=== PATIENT | female | born 1960 | race Caucasian/White ===

== ENCOUNTER 2019-09-27 09:58 | Outpatient (CLI) | payer OTHER, SELFPAY ==
[2019-09-27 10:19] LABS: Add Urine Microscopic? NO; Appearance Urine Clear (Clear); Bilirubin Urine Negative (Negative); Blood Urine Negative (Negative); Color Urine Yellow (Yellow); Glucose Urine UA Negative (Negative); Ketones Urine Negative (Negative); Leukocyte Esterase Ur Negative (Negative); Nitrate Urine Negative (Negative); Protein Urine Negative (Negative); Specific Grav Ur 1.015 (1.010-1.020); Urobilinogen Urine 0.2 mg/dL (0.2-1.0)
[2019-09-27 10:56] LABS: Alanine Aminotransferase 34 U/L (14-59); Albumin Level 4.1 g/dL (3.4-5.0); Alkaline Phosphatase 79 U/L (46-116); Anion Gap 9.3 mmol/L (7-16); Aspartate Amino Transferase 22 U/L (15-37); Bilirubin,Total 0.5 mg/dL (0.00-1.00); Blood Urea Nitrogen 9 mg/dL (7-18); Calcium 9.8 mg/dL (8.5-10.1); Carbon Dioxide 32 mmol/L (21-32); Chloride 105 mmol/L (98-108); Cholesterol 198 mg/dL (0-200); Creatine Kinase 43 U/L (26-192); Estimated Glomerular Filt Rate > 60; Free T3 2.44 pg/mL (2.18-3.98); Free T4 Free Thyroxine 1.01 ng/dL (0.76-1.46); Glucose 98 mg/dL (70-99); HDL Direct 54 mg/dL (40-60); LDL Cholesterol Calculated 114 mg/dL (<130); Osmolality Calculated 292 mOsm/kg (285-295); Potassium 4.3 mmol/L (3.5-5.1); Sodium 142 mmol/L (136-145); Thyroid Stimulating Hormone 2.09 uIU/mL (0.36-3.74); Total Protein 7.2 g/dL (6.4-8.2); Triglycerides 148 mg/dL (0-150)
[2019-10-01 19:56] LABS: Vitamin D 25 Hydroxy 53 ng/mL (30-100)
== END 2019-09-27 09:59 | disposition home or self-care (01) ==
LOC: CHSLAB 09:59
PROVIDERS: PCP Internal Medicine; Visit Provider Internal Medicine
DX: E78.2 Mixed hyperlipidemia (principal); I10 Essential (primary) hypertension; E03.4 Atrophy of thyroid (acquired); M81.0 Age-related osteoporosis without current pathological fracture
CPT/HCPCS: 36415; 80053; 80061; 81003; 82306; 82550; 84439; 84443; 84481

== ENCOUNTER 2019-11-12 08:03 | Outpatient (CLI) | payer OTHER, SELFPAY ==
--- NOTE | ~2019-11-12 | DEXA_ITS ---
BMD(1) Young-Adult(2) Age-Matched(3) Region (g/cm2) T-score Z-score WHO Classification L1 1.251 0.9 1.4 Normal L2 1.310 0.8 1.3 Normal L3 1.374 1.3 1.8 Normal L4 1.404 1.4 2.0 Normal L1-L4 1.341 1.2 1.7 Normal Trend: L1-L4 Change vs Change vs Measured Age BMD(1) Baseline Previous Date (years) (g/cm2) (%) (%) 11/12/2019 59.1 1.341 -3.5* -4.1* 10/26/2017 57.1 1.398 0.6 -1.6 10/23/2014 54.1 1.421 2.3* -1.4 10/05/2013 53.0 1.441 3.7* 0.7 09/17/2011 51.0 1.431 3.0* 1.1 05/05/2009 46.6 1.416 1.9 1.9 04/07/2007 44.5 1.389 baseline - * - Indicates significant change based on 95% confidence interval. 1 - Statistically 68% of repeat scans fall within 1SD (+- 0.010 g/cm2 for AP Spine L1-L4) 2 - [place] (Combined NHANES (ages 20-30) / [employer] (ages 20-40)) AP Spine Reference Population (v112) 3 - Matched for Age, Weight (females 25-100 kg), Ethnic 11 - World Health Organization - Definition of Osteoporosis and Osteopenia for Women: Normal = T-score at or above -1.0 SD; Osteopenia = T-score between -1.0 and -2.5 SD; Osteoporosis = T-score at or below -2.5 SD; (WHO definitions only apply when a young healthy Women reference database is used to determine T-scores.) Printed: 11/12/2019 8:41:09 AM (13.60)76:3.00:50.00:12.0 0.00:10.92 0.60x1.05 23.7:%Fat=41.3% 0.00:0.00 0.00:0.00 Filename: [id number] Scan Mode: Standard;OneScan 37.0 uGy [employer] [id number] BMD(1) Young-Adult(2,7) Age-Matched(3) Region (g/cm2) T-score Z-score WHO Classification Neck Left 0.676 -2.6 -1.8 Osteoporosis Right 0.695 -2.5 -1.7 Osteoporosis Mean 0.685 -2.5 -1.7 Osteoporosis Difference 0.019 0.1 0.1 - Total Left 0.777 -1.8 -1.4 Osteopenia Right 0.753 -2.0 -1.6 Osteopenia Mean 0.765 -1.9 -1.5 Osteopenia Difference 0.024 -0.2 -0.2 - Hip [place] Length Comparison (mm) (Right = 110.5 mm) (Mean = 105.7 mm) (Left = 111.3 mm) Trend: Total Mean Change vs Change vs Measured Age BMD(1) Baseline Previous Date (years) (g/cm2) (%) (%) 11/12/2019 59.1 0.765 2.4 2.4 10/05/2013 53.0 0.747 0.0 0.8 09/17/2011 51.0 0.741 -0.8 -1.6 05/05/2009 46.6 0.753 0.8 0.8 04/07/2007 44.5 0.747 baseline - 1 - Statistically 68% of repeat scans fall within 1SD (+- 0.010 g/cm2 for DualFemur Total) 2 - [place] (Combined NHANES (ages 20-30) / [employer] (ages 20-40)) Femur Reference Population (v112) 3 - Matched for Age, Weight (females 25-100 kg), Ethnic 7 - [employer]em[employer] Total T-score difference is 0.2. Asymmetry is None. 11 - World Health Organization - Definition of Osteoporosis and Osteopenia for Women: Normal = T-score at or above -1.0 SD; Osteopenia = T-score between -1.0 and -2.5 SD; Osteoporosis = T-score at or below -2.5 SD; (WHO definitions only apply when a young healthy Women reference database is used to determine T-scores.) Printed: 11/12/2019 8:41:10 AM (13.60); Filename: [id number]; Right Femur; 19.9:%Fat=31.0%; Neck Angle (deg)= 64; Scan Mode: Standard 37.0 uGy; Left Femur; 19.6:%Fat=33.0%; Neck Angle (deg)= 63; Scan Mode: Standard 37.0 uGy [employer] [id number] Dear Joseph Floyd, Your patient Jayne Williamson completed
--- NOTE | ~2019-11-12 | MM_ITS ---
EXAMINATION: MM screening mee BI w devaughn HISTORY: Screening TECHNIQUE: Craniocaudal and mediolateral oblique 3-D tomosynthesis images were obtained and synthetic 2-D images were generated. CAD analysis was submitted and interpreted. COMPARISON: Comparison to multiple prior studies sequentially, with oldest reviewed study dated 10/05. BREAST PARENCHYMAL COMPOSITION: The breasts are heterogeneously dense, which may obscure small masses . FINDINGS: Bilateral breast asymmetries are stable. There is no evidence of suspicious mass, calcifica tion, or architectural distortion to suggest malignancy in either breast. There has been no suspiciou s interval change. IMPRESSION: 1. No mammographic evidence of malignancy. 2. Recommend routine screening mammography in one year. BI-RADS Category 1: Negative Reviewed, dictated and finalized at location A.
== END 2019-11-12 08:04 | disposition home or self-care (01) ==
LOC: CHSIMG 08:04
PROVIDERS: PCP Internal Medicine; Visit Provider Internal Medicine
DX: Z12.31 Encounter for screening mammogram for malignant neoplasm of breast (principal); M81.0 Age-related osteoporosis without current pathological fracture
CPT/HCPCS: 77063; 77067; 77080

== ENCOUNTER 2020-04-25 08:29 | Outpatient (CLI) | payer OTHER, SELFPAY ==
[2020-04-25 08:52] LABS: Add Urine Microscopic? NO; Appearance Urine Clear (Clear); Bilirubin Urine Negative (Negative); Blood Urine Negative (Negative); Color Urine Yellow (Yellow); Glucose Urine UA Negative (Negative); Ketones Urine Negative (Negative); Leukocyte Esterase Ur Negative (Negative); Nitrate Urine Negative (Negative); Protein Urine Negative (Negative); Urobilinogen Urine 0.2 mg/dL (0.2-1.0)
[2020-04-25 09:31] LABS: Alanine Aminotransferase 25 U/L (14-59); Albumin Level 4.2 g/dL (3.4-5.0); Alkaline Phosphatase 76 U/L (46-116); Anion Gap 7 mmol/L (8-16); Aspartate Amino Transferase 14 U/L (15-37); Bilirubin,Total 0.6 mg/dL (0.00-1.00); Blood Urea Nitrogen 12 mg/dL (7-18); Calcium 9.2 mg/dL (8.5-10.1); Carbon Dioxide 32 mmol/L (21-32); Chloride 104 mmol/L (98-108); Cholesterol 171 mg/dL (0-200); Creatine Kinase 39 U/L (26-192); Estimated Glomerular Filt Rate > 60; Free T3 2.25 pg/mL (2.18-3.98); Free T4 Free Thyroxine 0.81 ng/dL (0.76-1.46); Glucose 101 mg/dL (70-99); HDL Direct 44 mg/dL (40-60); LDL Cholesterol Calculated 99 mg/dL (<130); Osmolality Calculated 295 mOsm/kg (285-295); Potassium 4.3 mmol/L (3.5-5.1); Sodium 143 mmol/L (136-145); Thyroid Stimulating Hormone 2.17 uIU/mL (0.36-3.74); Total Protein 6.9 g/dL (6.4-8.2); Triglycerides 140 mg/dL (0-150)
[2020-04-30 21:08] LABS: Vitamin D 25 Hydroxy 46 ng/mL (30-100)
== END 2020-04-25 08:30 | disposition home or self-care (01) ==
LOC: CHSLAB 08:31
PROVIDERS: PCP Internal Medicine; Visit Provider Internal Medicine
DX: E78.2 Mixed hyperlipidemia (principal); I10 Essential (primary) hypertension; E03.4 Atrophy of thyroid (acquired); M81.0 Age-related osteoporosis without current pathological fracture
CPT/HCPCS: 36415; 80053; 80061; 81003; 82306; 82550; 84439; 84443; 84481

== ENCOUNTER 2020-05-08 09:16 | Outpatient (CLI) | payer OTHER, SELFPAY ==
--- NOTE | ~2020-05-08 | XR_ITS ---
EXAMINATION: XR knee RT 3V EXAM DATE: 05/08/2020 09:41 INDICATION: No known recent injury provided at this time. Pain of the right knee. TECHNIQUE: Three projections of the right knee. There is no prior study for comparison. FINDINGS: No evidence osteochondral defect or joint body in the right knee joint. There are no acut e fractures or dislocations identified. There is no subcutaneous gas. The soft tissue is unremarkab le. There are no radiopaque foreign bodies. No joint effusion. Joint spaces are maintained. IMPRESSION: 1. Unremarkable XR knee RT 3V exam. Reviewed, dictated and finalized at location B. DEALER
== END 2020-05-08 09:17 | disposition home or self-care (01) ==
LOC: CHSIMG 09:18
PROVIDERS: PCP Internal Medicine; Visit Provider Internal Medicine
DX: M25.561 Pain in right knee (principal)
CPT/HCPCS: 73562

== ENCOUNTER → 2020-05-15 09:21 | Outpatient (CLI) | payer OTHER, SELFPAY ==
--- NOTE | ~2020-05-15 | MR_ITS ---
EXAMINATION: MR knee RT wo con DATE: 05/15/2020 10:03 INDICATION: Several months of generalized right knee pain, swelling and numbness with limited range o f motion. TECHNIQUE: Magnetic resonance imaging (MRI) of the right knee was performed without intravenous contr ast. Sequences included coronal PD-weighted FSE, coronal PD-weighted FS FSE, sagittal T2-weighted FS E, sagittal PD-weighted FS FSE and axial PD weighted fat saturated FSE. COMPARISON: Right knee radiographs dated 05/08/2020 FINDINGS: Medial compartment: Medial meniscus is normal. There is mild partial-thickness cartilage loss with chondral surface irreg ularity along the anterior weightbearing medial femoral condyle. Lateral compartment: Small focus of increased signal along the inner free edge of the lateral meniscus which could represe nt a small radial tear or focal fraying. Articular cartilage is normal. Patellofemoral compartment: Partial-thickness chondral fissuring extending across the central third of the patella and involving up to 50% the cartilage thickness. Trochlear cartilage is normal. Ligaments and tendons: Anterior and posterior cruciate ligaments are normal. The medial collateral ligament and fibular ralph ateral ligament complex are normal. The extensor mechanism is normal. The visualized medial and later al hamstring tendons as well as the iliotibial band are normal. Fluid: Physiologic amount of fluid in the joint space. No loose osteochondral bodies identified. Osseous/other: Normal marrow signal. Tiny low signal intensity bone island at the lateral tibial plateau. No fractur e or pathologic marrow replacing process. Mild edema in the superficial suprapatellar fat pad along t he superomedial aspect of the patella which can be seen with fat pad impingement syndrome. IMPRESSION: 1. Small radial tear versus fraying along the free edge of the body of the lateral meniscus. 2. Mild medial and patellofemoral compartment osteoarthritis with regions of moderate grade chondral malacia along the anterior weightbearing medial femoral condyle and along the patella. 3. Mild edema the superficial suprapatellar fat pad which can be seen with fat pad impingement syndro me. Reviewed, dictated and finalized at location B. RBARIC TECHNOLOGIST IMPRESSION: 1. Small radial tear versus fraying along the free edge of the body of the late ral meniscus. 2. Mild medial and patellofemoral compartment osteoarthritis with regions of mo derate grade chondral malacia along the anterior weightbearing medial femoral c ondyle and along the patella. 3. Mild edema the superficial suprapatellar fat pad which can be seen with fat pad impingement syndrome.
== END ==
PROVIDERS: PCP Internal Medicine; Visit Provider Internal Medicine
DX: M17.11 Unilateral primary osteoarthritis, right knee (principal); R60.0 Localized edema
CPT/HCPCS: 73721

== ENCOUNTER 2020-05-21 08:56 | Outpatient (RCR) | payer OTHER, SELFPAY ==
--- NOTE | 2020-05-21 09:41 | PTOPEVAL ---
Thank you for referring Jayne Williamson to [facility].? The patient is scheduled to be seen for therapy? __2__x/week for 8 visits. Please review, sign, date and return this plan of care MILES. I agree with and certify that the following plan of care is medically necessary. Referring Physician Date Admitting Provider: Attending Provider: Joseph Floyd MD Referring Provider: *PT Outpatient Evaluation Start: 05/21/20 09:10 Freq: Status: Active Protocol: Document 05/21/20 09:11 YANGRENOOsvaldo (Rec: 05/21/20 09:41 JESSE [email or web address]) Therapy Assessment Status Assessment Status Assessment Status Evaluation Evaluation Information Problem Diagnosis right knee pain Cause 01/13/20 Subjective Information Pt. states that she has had Query Text:As Reported By Patient/ knee pain since January. She Family reports that around that time she was helping with her granddaughter and doing alot of walking. She states that pain gradually got worse. She states that she has sharp pain down the center of the knee and has a numb feeling on the outside of the right knee . She reports pain is constant . She states that pain can wake her at night. She states that stairs, squatting and kneeling are difficult. She has to complete stairs one step at a time. She states that she was walking 2-3 miles a day, but can only go a 1/4 of a mile before having to stop now. she reports that her goal is to decrease her pain and walk a longer distance. Pain Assessment Pain Scale Pain Scale Used Numeric (1 - 10) Self Report Pain Assessment Right Knee(s) Reported Pain Level 4 Pain Description Numbness,Sharp Pain Frequency Continuous Greatest Pain Intensity 10 Pain Aggravating Factors Exercise/Activity,Prolonged Position,Stair Climbing Pain Score Pain Score 4: Self Report Additional Pain Score Comments Pt. has been using prednisone for several days with some relief noted Interventions Used Interventio
--- NOTE | 2020-08-07 13:31 | PCPTNOTE ---
Mrs. Williamson attended a total of 6 treatment sessions from 05/21/20 to 06/04/20. She contacted the clinic recently stating that she underwent surgery. Pt. account will be discharged at this time in anticipation of pt. returning post operatively. Felipe Ngo, MPT
== END 2020-06-04 09:45 | disposition home or self-care (01) ==
LOC: CHSPT 08:56
PROVIDERS: PCP Internal Medicine; Visit Provider Internal Medicine
DX: M25.561 Pain in right knee (principal)
CPT/HCPCS: 97014; 97110; 97140; 97161; G0283

== ENCOUNTER → 2020-07-22 01:20 | Outpatient (CLI) | payer OTHER, SELFPAY ==
[2020-07-22 18:55] LABS: SARS-CoV-2 RNA PCR Negative
== END ==
PROVIDERS: PCP Internal Medicine; Visit Provider Orthopaedic Surgery
DX: Z01.812 Encounter for preprocedural laboratory examination (principal); Z20.822 Contact with and (suspected) exposure to COVID-19
CPT/HCPCS: C9803; U0003; U0005

== ENCOUNTER 2020-07-22 08:59 | Outpatient (CLI) | payer OTHER, SELFPAY ==
--- NOTE | 2020-07-22 09:09 | ECG_ITS ---
Measurements Intervals [facility] Rate: 80 P: 71 TN: 143 QRS: 74 QRSD: 93 T: 39 QT: 374 QTc: 432 Interpretive Statements SINUS RHYTHM NORMAL ECG Electronically Signed On 07-22-2020 9:27:38 CDT by Jose Knapp D.O.
== END 2020-07-22 09:00 | disposition home or self-care (01) ==
LOC: ANHSURGERY 09:03
PROVIDERS: PCP Internal Medicine; Visit Provider Orthopaedic Surgery
DX: Z01.810 Encounter for preprocedural cardiovascular examination (principal); I10 Essential (primary) hypertension; E78.5 Hyperlipidemia, unspecified
CPT/HCPCS: 93005

== ENCOUNTER 2020-07-25 06:00 | Day surgery (SDC) | payer OTHER, SELFPAY ==
[2020-07-16 10:52] VITALS: BMI 28.0
--- NOTE | 2020-07-24 12:51 | WPDANESEPPF ---
Anes - Initial Pre Proc Eval Procedure: Operation Date: 07/25/20 07:30 Proposed Procedures p Right Knee Arthroscopy, Proceed As Indicated - Prem Gómez MD Date/Time: 07/24/20 12:51 Surgeon: Prem Gómez MD Pre Op Diagnosis: right knee lateral meniscus tear chondromalacia Patient Data Age: 59 Gender: F Height: 1.63 m Weight: 74 kg Allergies Allergy/AdvReac Type Severity Reaction Status Date / Time No Known Allergies Allergy Unverified 07/25/20 06:35 Home Medications Medication Instructions Recorded Confirmed Type chlorhexidine gluconate 4 % 1 applic TOPICAL ONCE #237 ml 07/09/20 07/25/20 Rx topical liquid cholecalciferol (vitamin D3) 25 mcg PO DAILY 07/16/20 07/25/20 History [Vitamin D3] escitalopram oxalate 10 mg PO DAILY 07/16/20 07/25/20 History famotidine [Pepcid] 20 mg PO DAILY 07/16/20 07/25/20 History ibandronate 150 mg PO MONTHLY 07/16/20 07/25/20 History levothyroxine 50 mcg PO DAILY 07/16/20 07/25/20 History losartan 25 mg PO DAILY 07/16/20 07/25/20 History melatonin 3 mg PO HS 07/16/20 07/25/20 History multivitamin 1 tablet PO DAILY 07/16/20 07/25/20 History nortriptyline 10 mg PO HS 07/16/20 07/25/20 History polyethylene glycol 3350 [Miralax] 17 g PO BID 07/16/20 07/25/20 History rosuvastatin 5 mg PO HS 07/16/20 07/25/20 History Patient hx anesthesia problems: none Family hx anesthesia problems: none PMFSH Past Medical History Medical History (Updated 07/24/20 @ 12:51 by Joaquim Ramos DO) Anxiety Claustrophobia Depression Hyperlipidemia Hypertension Hypothyroidism IBS (irritable bowel syndrome) Osteoporosis Wears glasses Surgical History Surgical History (Updated 07/08/20 @ 09:54 by Catia Ochoa MA) H/O: hysterectomy 1988 Family History Family History (Updated 07/09/20 @ 08:30 by Genna Malone, RT(R)) Father Hypertension Cerebrovascular accident Family history of type 2 diabetes mellitus Mother Hypertension Family history of type 2 diabetes mellitus Sibling Hypertension Family history of type 2 diabetes mellitus Other Arthritis Family history of malignant neoplasm of breast Heart disease High cholesterol Melanoma Thyroid cancer Social History Social History (Updated 07/08/20 @ 09:52 by Catia Ochoa MA) Smoking status: Never smoker Alcohol intake: never Substance use: never Substance use type: does not use Living arrangements: with family Gender identity (if verbalized by the patient): Female Spiritual care concerns: No Anes - Eval Final PreProcedure Day of Procedure 07/24/20 12:51 Patient weight: overweight Heart: regular rate and rhythm Lungs: clear to auscultation and normal air movement Airway: Mallampati scale class II Neurological: alert and oriented Last oral intake: >/= 8 hours ASA classification: III Emergent: no Anesthetic plan: proceed Anesthesia type and monitoring: general LMA and standard monitoring Informed Consent: The patient's anesthetic plan and its attendant risks and benefits were discussed with the patient/family/POA. Questions were solicited and answers provided to the satisfaction of the patient/family/POA.
[2020-07-25] VITALS (9 sets, daily range): BP systolic 110–158; BP diastolic 57–96; PULSE 61–78; RESP 12–16; TEMP 36.4–36.9; O2SAT 99–100
[2020-07-25] MEDS: LACTATED RINGERS 1,000 ML 30 ML IV CONT ×2 (06:55→08:54)
[2020-07-25] MEDS: ACETAMINOPHEN 500 MG TABLET 1000 MG PO (07:03)
[2020-07-25] MEDS: CELECOXIB 200 MG CAPSULE PO (07:03)
--- NOTE | 2020-07-25 07:22 | WPDHPUPDATE1 ---
History and Physical Update Update Date/Time: 07/25/20 07:22 History and Physical has been reviewed, including an updated exam of the patient. There are NO changes in the patient's condition. Risks, benefits, and alternatives have been discussed and questions answered. Patient agrees to proceed with procedure.
[2020-07-25] MEDS: ceFAZolin 2 GM/D5W 50 ML 2 GM/50 ML BAG IVPB (07:30)
[2020-07-25] MEDS: BUPIVACAINE HCL 0.5% PF 30 ML VIAL INFILTRATE (07:55)
--- NOTE | 2020-07-25 09:00 | PM.PROC ---
Procedure Note - Detailed Date of procedure: 07/25/20 Pre-op diagnosis: right knee lateral meniscus tear chondromalacia Post-op diagnosis: same Procedure performed: RIGHT KNEE SCOPE WITH PARTIAL LATERAL MENISCECTOMY AND MAJOR SYNOVECTOMY Description of procedure: PATIENT WAS TAKEN TO THE OR. RIGHT LEG WAS PREPPED AND DRAPED STERILE. TROCARS WERE PLACED IN THE USUAL FASHION. CAMERA WAS INTRODUCED. THERE WAS GRADE 2 CHONDROMALACIA TO THE PATELLA FEMORAL JOINT. THIS WAS MOSTLY ON THE PATELLA. THERE WAS NO EXPOSED BONE. THERE WAS A LOT OF SYNOVITIS IN ALL COMPARTMENTS. THE MEDIAL COMPARTMENT SHOWED CHONDROMALACIA TO THE MED FEMORAL CONDYLE. A SHAVER WAS USED TO PREFORM A CHONDROPLASTY. THERE WAS NO MEDIAL MENISCUS TEAR. THE ACL WAS INTACT. THE LATERAL MENISCUS WAS TORN AND UNDERWENT RESECTION OF ABOUT 5% THE LAT FEMORAL CONDYLE UNDERWENT CHONDROPLASTY. A SYNOVECTOMY WAS PREFORMED. THE PATELLO FEMORAL JOINT UNDERWENT CHONDROPLASTY. SYNOVECTOMY WAS PREFORMED IN THE SUPERIOR MEDIAL COMPARTMENT. THE WOUNDS WERE APPROXIMATED WITH 4.0 NYLON. STERILE DRESSING WAS APPLIED. PATIENT WAS EXTUBATED. Anesthesia: GLMA Surgeon: Prem Gómez MD Estimated blood loss (mL): 5 Complications: No immediate complications Condition: stable Disposition: PACU
[2020-07-25] MEDS: fentaNYL CITRATE INJ (*CRX) 100 MCG/2 ML VIAL 25 MCG IV PUSH ×3 (09:16→10:19)
[2020-07-25] MEDS: ONDANSETRON INJ 4 MG/2 ML VIAL IV PUSH (09:36)
[2020-07-25] MEDS: oxyCODONE HCL (*CRX) 5 MG TAB IR PO (10:57)
== END 2020-07-25 11:50 | disposition home or self-care (01) ==
PROVIDERS: PCP Internal Medicine; Visit Provider Orthopaedic Surgery
PROC: (CPT 29870; principal; 2020-07-25 07:30)
DX: S83.281A Other tear of lateral meniscus, current injury, right knee, initial encounter (principal); R20.0 Anesthesia of skin; M22.41 Chondromalacia patellae, right knee; F41.8 Other specified anxiety disorders; E78.5 Hyperlipidemia, unspecified; I10 Essential (primary) hypertension; E03.9 Hypothyroidism, unspecified; K58.9 Irritable bowel syndrome, unspecified; M81.0 Age-related osteoporosis without current pathological fracture; F40.240 Claustrophobia; W01.0XXA Fall on same level from slipping, tripping and stumbling without subsequent striking against object, initial encounter; Y93.K1 Activity, walking an animal
CPT/HCPCS: 29881; 29876; 93005; A9270; C9803; J0690; J1100; J2250; J2370; J2405; J2704; J3010; J7120; U0003; U0005

== ENCOUNTER 2020-08-07 16:03 | Outpatient (RCR) | payer OTHER, SELFPAY ==
--- NOTE | 2020-08-07 17:15 | PTOPEVAL ---
Thank you for referring Jayne Williamson to [facility].? The patient is scheduled to be seen for therapy? __2__x/week for 12 visits. Please review, sign, date and return this plan of care MILES. I agree with and certify that the following plan of care is medically necessary. Referring Physician Date Admitting Provider: Attending Provider: Prem Gómez MD Referring Provider: *PT Outpatient Evaluation Start: 08/07/20 16:02 Freq: Status: Active Protocol: Document 08/07/20 16:02 ACR (Rec: 08/07/20 17:15 ACR [id number]) Therapy Assessment Status Assessment Status Assessment Status Evaluation Outpatient Past Medical History Neurological History Hx Neurological Disorders No Significant History Cardiovascular History Hx Hypercholesterolemia Yes Hx Hypertension Yes Respiratory History Hx Respiratory Disorders No Significant History Gastrointestinal History Hx Irritable Bowel Yes Genitourinary History Hx Genitourinary Disorders No Significant History Musculoskeletal History Hx Fractures Yes: LT ELBOW, RT FOOT Hx Osteoporosis Yes Hematological History Hx Hematological Disorders No Significant History Endocrine History Hx Hypothyroidism Yes HEENT History Hx HEENT Disorders No Significant History Integumentary History Hx Skin Disorders No Significant History Reproductive History Hx Hysterectomy Yes Psychosocial History Hx Anxiety Yes Hx Depression Yes Pain History History of Any Previous or Ongoing No Significant History Instance of Pain Anesthesia History Hx Anesthesia Reactions No Significant History Evaluation Information Problem Diagnosis R knee anthroscopy Onset 07/25/20 Subjective Information Patient states that she had a Query Text:As Reported By Patient/ bout of PT for her knee before Family she was out of state for a couple weeks and when she got back she went to the orthopedic surgeon and got a scope. She states she got a meniscus repair, and cleaned the behind the knee cap. Patient states she is having difficulty straightening and bending the knee, squatting, getting in and out of the car, navigating stairs, and prolonged standing/walking. Patient states that her goal
--- NOTE | 2020-09-12 09:56 | PTOPEVAL ---
Thank you for referring Jayne Williamson to [facility].? The patient is scheduled to be seen for therapy? ____x/week for ___ weeks. Please review, sign, date and return this plan of care MILES. I agree with and certify that the following plan of care is medically necessary. Referring Physician Date Admitting Provider: Attending Provider: Prem Gómez MD Referring Provider: *PT Outpatient Evaluation Start: 08/07/20 16:02 Freq: Status: Active Protocol: Document 09/12/20 09:00 ACR (Rec: 09/12/20 09:56 ACR [id number]) Therapy Assessment Status Assessment Status Assessment Status Discharge Outpatient Past Medical History Neurological History Hx Neurological Disorders No Significant History Cardiovascular History Hx Hypercholesterolemia Yes Hx Hypertension Yes Respiratory History Hx Respiratory Disorders No Significant History Gastrointestinal History Hx Irritable Bowel Yes Genitourinary History Hx Genitourinary Disorders No Significant History Musculoskeletal History Hx Fractures Yes: LT ELBOW, RT FOOT Hx Osteoporosis Yes Hematological History Hx Hematological Disorders No Significant History Endocrine History Hx Hypothyroidism Yes HEENT History Hx HEENT Disorders No Significant History Integumentary History Hx Skin Disorders No Significant History Reproductive History Hx Hysterectomy Yes Psychosocial History Hx Anxiety Yes Hx Depression Yes Pain History History of Any Previous or Ongoing No Significant History Instance of Pain Anesthesia History Hx Anesthesia Reactions No Significant History Evaluation Information Problem Diagnosis R knee arthroscopy Onset 07/25/20 Subjective Information Patient states she is able to Query Text:As Reported By Patient/ do everything that she needs Family to do and is able to go on hikes again with no difficulty . She is performing her HEP everyday and riding the bike for 30 minutes. She states she has some difficulty with lunges and squats, but states those will come as I keep practicing. Pain Assessment Timing of Pain Assessment Timing of Pain Assessment Pre-Treatment Pain Scale Pain Scale Used Numeric (1 - 10) Self Report Pain Assessment Right Knee(s) Reported Pain Level 0 Greatest Pain Intensity 0 Pain Score Pain Score 0: Self Report
== END 2020-09-12 10:26 | disposition home or self-care (01) ==
LOC: CHSPT 16:03
PROVIDERS: PCP Internal Medicine; Visit Provider Orthopaedic Surgery
DX: Z98.890 Other specified postprocedural states (principal)
CPT/HCPCS: 97110; 97112; 97161; 97530

== ENCOUNTER 2020-10-20 15:24 | Outpatient (CLI) | payer OTHER, SELFPAY ==
[2020-10-20 16:40] LABS: SARS-CoV-2 RNA PCR Negative (Negative)
== END 2020-10-20 15:25 | disposition home or self-care (01) ==
LOC: CHSLAB 15:26
PROVIDERS: PCP Internal Medicine; Visit Provider Internal Medicine
DX: J06.9 Acute upper respiratory infection, unspecified (principal); R50.9 Fever, unspecified; Z20.822 Contact with and (suspected) exposure to COVID-19
CPT/HCPCS: C9803; U0003; U0005

== ENCOUNTER 2020-11-07 08:04 | Outpatient (CLI) | payer OTHER, SELFPAY ==
[2020-11-07 08:39] LABS: Appearance Urine Clear (Clear); Bilirubin Urine Negative (Negative); Color Urine Light Yellow (Yellow); Glucose Urine UA Negative (Negative); Ketones Urine Negative (Negative); Leukocyte Esterase Ur Trace (Negative); Nitrate Urine Negative (Negative); Protein Urine Negative (Negative); Specific Grav Ur 1.015 (1.010-1.020); Urobilinogen Urine 0.2 mg/dL (0.2-1.0); pH Urine 6.5 (5.0-8.0)
[2020-11-07 09:15] LABS: Add Urine Microscopic? YES; Blood Urine Trace-Intact (Negative); RBC Urine 0-2 /hpf (0-2); Squamous Epithelial Cell Urine Few /hpf (Few); WBC Urine 0-3 /hpf (0-3)
[2020-11-07 09:16] LABS: Bacteria Urine Trace /hpf
[2020-11-07 09:18] LABS: Hemoglobin A1C 5.3 % (<5.7)
[2020-11-07 11:12] LABS: Alanine Aminotransferase 25 U/L (14-59); Albumin Level 4.1 g/dL (3.4-5.0); Alkaline Phosphatase 114 U/L (46-116); Anion Gap 10 mmol/L (8-16); Aspartate Amino Transferase 14 U/L (15-37); Bilirubin,Total 0.5 mg/dL (0.00-1.00); Blood Urea Nitrogen 16 mg/dL (7-18); Calcium 9.2 mg/dL (8.5-10.1); Carbon Dioxide 28 mmol/L (21-32); Chloride 105 mmol/L (98-108); Cholesterol 180 mg/dL (0-200); Creatine Kinase 35 U/L (26-192); Estimated Glomerular Filt Rate > 60; Glucose 92 mg/dL (70-99); HDL Direct 50 mg/dL (40-60); LDL Cholesterol Calculated 110 mg/dL (<130); Osmolality Calculated 297 mOsm/kg (285-295); Potassium 4.5 mmol/L (3.5-5.1); Sodium 143 mmol/L (136-145); Thyroid Stimulating Hormone 2.12 uIU/mL (0.36-3.74); Total Protein 7.4 g/dL (6.4-8.2); Triglycerides 102 mg/dL (0-150)
[2020-11-10 10:59] LABS: Vitamin D 25 Hydroxy 58 ng/mL (30-100)
== END 2020-11-07 08:05 | disposition home or self-care (01) ==
LOC: CHSLAB 08:05
PROVIDERS: PCP Internal Medicine; Visit Provider Internal Medicine
DX: R73.01 Impaired fasting glucose (principal); E78.2 Mixed hyperlipidemia; I10 Essential (primary) hypertension; E03.4 Atrophy of thyroid (acquired); M81.0 Age-related osteoporosis without current pathological fracture
CPT/HCPCS: 36415; 80053; 80061; 81001; 82306; 82550; 83036; 84439; 84443; 84481

== ENCOUNTER 2020-11-25 12:40 | Outpatient (CLI) | payer OTHER, SELFPAY ==
--- NOTE | ~2020-11-25 | MM_ITS ---
EXAMINATION: MM screening mee BI w devaughn HISTORY: Screening TECHNIQUE: Craniocaudal and mediolateral oblique 3-D tomosynthesis images were obtained and synthetic 2-D images were generated. CAD analysis was submitted and interpreted. COMPARISON: Comparison to multiple prior studies sequentially, with oldest reviewed study dated 10/23. BREAST PARENCHYMAL COMPOSITION: The breasts are heterogeneously dense, which may obscure small masses . FINDINGS: There is no evidence of suspicious mass, calcification, or architectural distortion to sugg est malignancy in either breast. There has been no suspicious interval change. IMPRESSION: 1. No mammographic evidence of malignancy. 2. Recommend routine screening mammography in one year. BI-RADS Category 1: Negative Reviewed, dictated and finalized at location A.
== END 2020-11-25 12:41 | disposition home or self-care (01) ==
PROVIDERS: PCP Internal Medicine; Visit Provider Internal Medicine
DX: Z12.31 Encounter for screening mammogram for malignant neoplasm of breast (principal)
CPT/HCPCS: 77063; 77067

== ENCOUNTER 2021-02-12 10:28 | Outpatient (CLI) | payer OTHER, SELFPAY ==
[2021-02-12 11:29] LABS: Influenza A QL RT-PCR Negative (Negative); Influenza B QL RT-PCR Negative (Negative); SARS-CoV-2 RNA PCR Negative (Negative)
== END 2021-02-12 10:29 | disposition home or self-care (01) ==
LOC: CHSLAB 10:30
PROVIDERS: PCP Internal Medicine; Visit Provider Internal Medicine
DX: J06.9 Acute upper respiratory infection, unspecified (principal); Z20.822 Contact with and (suspected) exposure to COVID-19
CPT/HCPCS: 87502; C9803; U0003; U0005

== ENCOUNTER 2021-05-09 14:16 | Emergency (ER) | payer OTHER, SELFPAY ==
[2021-05-09] VITALS (9 sets, daily range): BP systolic 139–163; BP diastolic 78–109; PULSE 89; RESP 14; TEMP 36.6; O2SAT 89–100
--- NOTE | ~2021-05-09 | XR_ITS ---
EXAMINATION: XR wrist RT min 3V INDICATION: Right wrist pain TECHNIQUE: Four views of the right wrist are obtained. COMPARISON: None available FINDINGS: There is no fracture, dislocation, or subluxation. Mild osteoarthritis is noted at the jada caphe and first carpal metacarpal joints. The soft tissues are unremarkable. IMPRESSION: 1. No acute osseous abnormality. Reviewed, dictated and finalized at location F. BED STITCHER
--- NOTE | ~2021-05-09 | CT_ITS ---
EXAMINATION: CT brain wo con INDICATION: Head injury COMPARISON: 04/03/2011 TECHNIQUE: Standard unenhanced head CT. The dose-length product (DLP) was 529.67 mGy-cm. The mA was a djusted according to patient size. Iterative reconstruction technique was employed. FINDINGS: There is no intracranial hemorrhage, acute infarction, or abnormal mass lesion. The ventric les are normal. There is no abnormal mass effect or midline shift. The friedman-white matter differentiat ion is normal. The basal cisterns are patent. The orbits are normal. The paranasal sinuses, mastoids and calvarium are normal. IMPRESSION: 1. No acute intracranial abnormality. Reviewed, dictated and finalized at location F. TOP PUBLISHING SPECIALIST
--- NOTE | ~2021-05-09 | CT_ITS ---
EXAMINATION: CT facial & cervical spine wo DATE: 05/09/2021 15:53 INDICATION: Head injury, left mandible pain TECHNIQUE: Computed tomography (CT) of the maxillofacial region and cervical spine was performed with out intravenous contrast. The dose-length product (DLP) was 353.85 mGy-cm. Automated exposure control and iterative reconstruction technique were employed. COMPARISON: None FINDINGS: MAXILLOFACIAL CT: No facial fracture is identified. The soft tissues are unremarkable. CERVICAL SPINE CT: There is no fracture, dislocation, or subluxation. The vertebral body heights are normal. There is mi ld loss of intervertebral disc space height at C6-7. Mild facet osteoarthritis is noted. The paravert ebral soft tissues are unremarkable. The odontoid is intact. IMPRESSION: 1. Unremarkable facial bones. 2. Mild cervical spondylosis without acute findings. Reviewed, dictated and finalized at location F. UTER SYSTEMS SECURITY ANALYST
--- NOTE | ~2021-05-09 | XR_ITS ---
EXAMINATION: XR hand RT min 3V INDICATION: Right hand pain TECHNIQUE: Three views of the right hand are obtained. COMPARISON: None available FINDINGS: There is no fracture, dislocation, or subluxation. Mild osteoarthritis is noted in multiple interphalangeal joints. The soft tissues are unremarkable. IMPRESSION: 1. No acute osseous abnormality. Reviewed, dictated and finalized at location F. ISH MASSEUSE
--- NOTE | ~2021-05-09 | XR_ITS ---
EXAMINATION: XR knee RT min 4V DATE: 05/09/2021 15:07 INDICATION: Right knee pain TECHNIQUE: Four views of the right knee were obtained. COMPARISON: 05/08/2020 FINDINGS: Alignment is normal. No fracture or osteochondral lesion. There is mild tricompartmental os teoarthritis characterized by tiny marginal osteophytes. There is a small knee joint effusion. Soft t issues are unremarkable. IMPRESSION: 1. Small knee joint effusion without acute osseous abnormality. Reviewed, dictated and finalized at location F. SCIENCE TECHNICIAN
--- NOTE | 2021-05-09 14:50 | ED.FALL ---
HPI - Fall General Chief Complaint: Fall Stated Complaint: fall Time Seen by Provider: 05/09/21 14:24 Source: patient, EMS and RN notes reviewed Mode of arrival: EMS Limitations: no limitations History of Present Illness HPI Narrative: 52-year-old female history of hypertension and Brian's thyroiditis presents to the emergency department after having a ground-level fall. Patient states she was walking her dog when the dog ran causing her to stumble fall forward and strike her face and right wrist and hand on the ground. Patient does not suspect she no LOC. Patient does complaint of nasal and facial pain with pain in her left jaw, more intense than right. Patient is also complaining of right hand and pain. Patient has ecchymosis to the right hand. Patient does also have right knee pain. Related Data Home Medications Medication Instructions Recorded Confirmed cholecalciferol (vitamin D3) 25 mcg PO DAILY 07/16/20 11/03/20 [Vitamin D3] escitalopram oxalate 10 mg PO DAILY 07/16/20 11/03/20 famotidine [Pepcid] 20 mg PO DAILY 07/16/20 11/03/20 ibandronate 150 mg PO MONTHLY 07/16/20 11/03/20 levothyroxine 50 mcg PO DAILY 07/16/20 11/03/20 losartan 25 mg PO DAILY 07/16/20 11/03/20 melatonin 3 mg PO HS 07/16/20 11/03/20 multivitamin 1 tablet PO DAILY 07/16/20 11/03/20 nortriptyline 10 mg PO HS 07/16/20 11/03/20 polyethylene glycol 3350 [Miralax] 17 g PO BID 07/16/20 11/03/20 rosuvastatin 5 mg PO HS 07/16/20 11/03/20 Allergies Allergy/AdvReac Type Severity Reaction Status Date / Time No Known Allergies Allergy Verified 11/03/20 11:09 Review of Systems Review of Systems: CONSTITUTIONAL: Denies fever, chills, or sweats. EYES: Denies visual changes, redness, or discharge. ENT: Denies rhinorrhea, congestion, sore throat, or otalgia. CARDIOVASCULAR: Denies chest pain, palpitations, or edema. RESPIRATORY: Denies cough or dyspnea. GASTROINTESTINAL: Denies abdominal pain, nausea, vomiting, or diarrhea. GENITOURINARY: Denies dysuria or hematuria. SKIN: Denies rash or itching. MUSCULOSKELETAL: Facial pain, left jaw pain. Right wrist and hand pain. Right knee pain. NEUROLOGIC: Denies headache, numbness, or weakness. [facility] Past Medical History Medical History Anxiety Claustrophobia Depression Hyperlipidemia Hypertension Hypothyroidism IBS (irritable bowel syndrome) Osteoporosis Wears glasses Surgical History Surgical History H/O: hysterectomy 1988 Family History Family History Father Hypertension Cerebrovascular accident Family history of type 2 diabetes mellitus Mother Hypertension Family history of type 2 diabetes mellitus Sibling Hypertension Family history of type 2 diabetes mellitus Other Arthritis Family history of malignant neoplasm of breast Heart disease High cholesterol Melanoma Thyroid cancer Social History Social History Alcohol intake: never Substance use: never Substance use type: does not use Gender identity (if verbalized by the patient): Female Spiritual care concerns: No Exam Narrative: APPEARANCE: Well appearing, no pain, no distress, well-nourished. HEAD: mild epistaxis, jaw tenderness. EYES: PERRLA/EOMI, conjunctivae clear. NOSE: Normal no drainage EARS:TMS clear with good light reflex. THROAT: Pharynx clear, no exudate. NECK: Supple. No adenopathy, no masses. RESPIRATORY: Airway patent, respirations nonlabored. Clear to auscultation bilaterally, no rales, rhonchi, wheezing. CARDIOVASCULAR: Regular rate and rhythm without murmurs rubs or gallops. ABDOMINAL: Soft, nontender, nondistended, normal bowel sounds MUSCULOSKELETAL: right hand ecchymosis. right wrist tenderness. right knee tenderness to palpation and movement NEURO: Alert. Cranial nerves
[2021-05-09] MEDS: HYDROmorphone HCL INJ (*CRX) 1 MG/ML SYR 0.5 MG IV PUSH (15:03)
== END 2021-05-09 17:30 | disposition home or self-care (01) ==
PROVIDERS: Emergency Provider Emergency Medicine; PCP Internal Medicine
DX: S09.92XA Unspecified injury of nose, initial encounter (principal); S09.93XA Unspecified injury of face, initial encounter; S00.81XA Abrasion of other part of head, initial encounter; S60.221A Contusion of right hand, initial encounter; E78.5 Hyperlipidemia, unspecified; I10 Essential (primary) hypertension; E06.3 Autoimmune thyroiditis; E03.9 Hypothyroidism, unspecified; K58.9 Irritable bowel syndrome, unspecified; M81.0 Age-related osteoporosis without current pathological fracture; F41.9 Anxiety disorder, unspecified; F32.9 Major depressive disorder, single episode, unspecified; F40.240 Claustrophobia; M47.812 Spondylosis without myelopathy or radiculopathy, cervical region; W01.0XXA Fall on same level from slipping, tripping and stumbling without subsequent striking against object, initial encounter; Y93.K1 Activity, walking an animal
CPT/HCPCS: 70450; 70486; 72125; 73110; 73130; 73564; 96374; 99284; J1170

== ENCOUNTER 2021-05-26 15:36 | Outpatient (CLI) | payer OTHER, SELFPAY ==
--- NOTE | ~2021-05-26 | XR_ITS ---
XR wrist RT min 3V DATE: 05/26/2021 15:59 INDICATION: Distal radial pain for 3 weeks since fall. [place] a pop today. TECHNIQUE: 4 views COMPARISON: May 09, 2021 right wrist and right hand FINDINGS: There is a subtle recent fracture of the distal radius with no significant displacement or angulation other than small several millimeter dorsal bony projection of the distal radial metaphysis . The distal ulna appears intact. No other fracture or any dislocation is identified. IMPRESSION: Subtle virtually nondisplaced distal radial metaphyseal fracture Reviewed, dictated and finalized at location A.
== END 2021-05-26 15:37 | disposition home or self-care (01) ==
LOC: CHSIMG 15:38
PROVIDERS: PCP Internal Medicine; Visit Provider Internal Medicine
DX: M25.531 Pain in right wrist (principal)
CPT/HCPCS: 73110

== ENCOUNTER 2021-05-28 08:57 | Outpatient (CLI) | payer OTHER, SELFPAY ==
--- NOTE | ~2021-05-28 | CT_ITS ---
EXAMINATION: CT wrist RT wo con DATE: 05/28/2021 09:20 INDICATION: Right wrist pain and swelling post fall TECHNIQUE: High resolution computed tomography (CT) of the right wrist was performed without intraven ous contrast. Additional sagittal and coronal reconstructions were performed. Automated exposure cont rol and iterative reconstruction technique were employed. The dose-length product was 443.71 mGy-cm. COMPARISON: Radiographs dated 05/26/2021 FINDINGS: Nondisplaced intra-articular fracture at the distal right radius which remains in essentially anatomi c alignment. <1 mm fracture gap and incongruity at the articular surface. Alignment remains essential ly anatomic. Mild osteoarthritis at the first carpal metacarpal joint. Carpal bossing with mild hyper trophic change at the dorsal margins of the bones of the junction of the third metacarpal, capitate a nd trapezoid. Soft tissues are unremarkable. IMPRESSION: 1. Nondisplaced intra-articular fracture of the distal right radius. Reviewed, dictated and finalized at location A.
== END 2021-05-28 08:58 | disposition home or self-care (01) ==
LOC: CHSIMG 08:58
PROVIDERS: PCP Internal Medicine; Visit Provider Internal Medicine
DX: M25.531 Pain in right wrist (principal); M25.431 Effusion, right wrist
CPT/HCPCS: 73200

== ENCOUNTER 2021-06-02 09:01 | Outpatient (CLI) | payer OTHER, SELFPAY ==
[2021-06-02 09:23] LABS: Add Urine Microscopic? YES
[2021-06-02 09:24] LABS: Appearance Urine Clear (Clear); Bacteria Urine Trace /hpf; Bilirubin Urine Negative (Negative); Blood Urine Negative (Negative); Color Urine Light Yellow (Yellow); Glucose Urine UA Negative (Negative); Ketones Urine Negative (Negative); Leukocyte Esterase Ur 1+ (Negative); Nitrate Urine Negative (Negative); Protein Urine Negative (Negative); RBC Urine None seen /hpf (0-2); Specific Grav Ur <= 1.005 (1.010-1.020); Squamous Epithelial Cell Urine Occasional /hpf (Few); Urobilinogen Urine 0.2 mg/dL (0.2-1.0); WBC Urine 0-3 /hpf (0-3); pH Urine 7.5 (5.0-8.0)
[2021-06-02 09:57] LABS: Alanine Aminotransferase 24 U/L (14-59); Alkaline Phosphatase 128 U/L (46-116); Anion Gap 7 mmol/L (8-16); Aspartate Amino Transferase 15 U/L (15-37); Bilirubin,Total 0.5 mg/dL (0.00-1.00); Blood Urea Nitrogen 14 mg/dL (7-18); Calcium 9.5 mg/dL (8.5-10.1); Carbon Dioxide 30 mmol/L (21-32); Chloride 104 mmol/L (98-108); Cholesterol 189 mg/dL (0-200); Creatine Kinase 49 U/L (26-192); Estimated Glomerular Filt Rate > 60; Free T3 2.78 pg/mL (2.18-3.98); Free T4 Free Thyroxine 0.88 ng/dL (0.76-1.46); Glucose 105 mg/dL (70-99); HDL Direct 52 mg/dL (40-60); LDL Cholesterol Calculated 113 mg/dL (<130); Osmolality Calculated 292 mOsm/kg (285-295); Potassium 4.5 mmol/L (3.5-5.1); Sodium 141 mmol/L (136-145); Thyroid Stimulating Hormone 1.88 uIU/mL (0.36-3.74); Total Protein 7.1 g/dL (6.4-8.2); Triglycerides 121 mg/dL (0-150)
[2021-06-05 18:15] LABS: Vitamin D 25 Hydroxy 52 ng/mL (30-100)
== END 2021-06-02 09:02 | disposition home or self-care (01) ==
LOC: CHSLAB 09:03
PROVIDERS: PCP Internal Medicine; Visit Provider Internal Medicine
DX: E78.2 Mixed hyperlipidemia (principal); I10 Essential (primary) hypertension; E03.4 Atrophy of thyroid (acquired); M81.0 Age-related osteoporosis without current pathological fracture
CPT/HCPCS: 36415; 80053; 80061; 81001; 82306; 82550; 84439; 84443; 84481

== ENCOUNTER 2021-12-18 07:57 | Outpatient (CLI) | payer OTHER, SELFPAY ==
--- NOTE | ~2021-12-18 | MM_ITS ---
EXAMINATION: MM screening [facility] BI w devaughn HISTORY: Screening mammogram TECHNIQUE: Craniocaudal and mediolateral oblique 3-D tomosynthesis images were obtained and synthetic 2-D images were generated. CAD analysis was submitted and interpreted. COMPARISON: 11/25/2020, 11/12/2019, 10/31/2018, 10/26/2017 BREAST PARENCHYMAL COMPOSITION: The breasts are heterogeneously dense, which may obscure small masses . FINDINGS: No suspicious mass, calcification, or architectural distortion are identified in either rony ast to suggest malignancy. There has been no suspicious interval change. IMPRESSION: 1. No mammographic evidence of malignancy. 2. Recommend routine screening mammography in one year. BI-RADS Category 1: Negative Reviewed, dictated and finalized at location A.
[2021-12-18 08:16] LABS: Appearance Urine Clear (Clear); Bilirubin Urine Negative (Negative); Glucose Urine UA Negative (Negative); Ketones Urine Negative (Negative); Leukocyte Esterase Ur 1+ (Negative); Nitrate Urine Negative (Negative); Protein Urine Negative (Negative); Urobilinogen Urine 0.2 mg/dL (0.2-1.0)
[2021-12-18 08:27] LABS: Add Urine Microscopic? YES; Bacteria Urine Trace /hpf; Blood Urine Trace-Intact (Negative); Color Urine Light Yellow (Yellow); RBC Urine None seen /hpf (0-2); Squamous Epithelial Cell Urine Few /hpf (Few); WBC Urine 0-3 /hpf (0-3)
[2021-12-18 09:04] LABS: Alanine Aminotransferase 34 U/L (14-59); Albumin Level 4.1 g/dL (3.4-5.0); Alkaline Phosphatase 91 U/L (46-116); Anion Gap 6 mmol/L (8-16); Aspartate Amino Transferase 19 U/L (15-37); Bilirubin,Total 0.4 mg/dL (0.00-1.00); Blood Urea Nitrogen 18 mg/dL (7-18); Calcium 9.2 mg/dL (8.5-10.1); Carbon Dioxide 31 mmol/L (21-32); Chloride 107 mmol/L (98-108); Cholesterol 203 mg/dL (0-200); Estimated Glomerular Filt Rate > 60; Free T3 2.26 pg/mL (2.18-3.98); Free T4 Free Thyroxine 0.84 ng/dL (0.76-1.46); Glucose 107 mg/dL (70-99); HDL Direct 49 mg/dL (40-60); LDL Cholesterol Calculated 136 mg/dL (<130); Osmolality Calculated 299 mOsm/kg (285-295); Potassium 4.7 mmol/L (3.5-5.1); Sodium 144 mmol/L (136-145); Thyroid Stimulating Hormone 2.95 uIU/mL (0.36-3.74); Total Protein 6.9 g/dL (6.4-8.2); Triglycerides 91 mg/dL (0-150)
[2021-12-23 12:23] LABS: Vitamin D 25 Hydroxy 50 ng/mL (30-100)
== END 2021-12-18 07:58 | disposition home or self-care (01) ==
LOC: CHSIMG 07:59
PROVIDERS: PCP Internal Medicine; Visit Provider Internal Medicine
DX: E03.4 Atrophy of thyroid (acquired) (principal); R73.01 Impaired fasting glucose; E78.2 Mixed hyperlipidemia; I10 Essential (primary) hypertension; M81.0 Age-related osteoporosis without current pathological fracture; Z12.31 Encounter for screening mammogram for malignant neoplasm of breast
CPT/HCPCS: 36415; 77063; 77067; 80053; 80061; 81001; 82306; 84439; 84443; 84481

== ENCOUNTER 2022-01-05 12:17 | Outpatient (CLI) | payer OTHER, SELFPAY ==
--- NOTE | ~2022-01-05 | DEXA_ITS ---
Bone Density Report Name: ROSSY LEAVITT Age: 61 Sex: Female Ethnicity: White Date of : 1960 Indication: postmenopausal; screening for osteoporosis; hysterectomy; Referring Provider: Joseph Floyd Study: Bone densitometry was performed. Exam Date: January 05, 2022 Accession number: [id number] Bone Density: Region BMD T-score Z-score Classification AP Spine(L1-L4) 1.122 0.7 2.0 Normal Femoral Neck (Left) 0.596 -2.3 -1.0 Osteopenia Total Hip (Left) 0.686 -2.1 -1.2 Osteopenia Femoral Neck (Right) 0.599 -2.2 -1.0 Osteopenia Total Hip (Right) 0.754 -1.5 -0.6 Osteopenia Femoral Neck Mean 0.598 -2.3 -1.0 Osteopenia Total Hip Mean 0.720 -1.8 -0.9 Osteopenia World Health Organization criteria for BMD impression classify patients as: Normal (T-score at or above -1.0), Osteopenia (T-score between -1.0 and -2.5), or Osteoporosis (T-score at or below -2.5). 10-year Fracture Risk: FRAX not reported because: Treated for osteoporosis Clinical Information Provided by Patient: Is being treated for osteoporosis Has used the following medications: Boniva (i.e. ibandronate), Vitamin D, Calcium, multivit Has the following medical conditions: Hysterectomy Patient maximum height was 64 Menopause Age: 31 No regular weight bearing exercise Drinks caffeinated beverages Onset of menses at age 15 Number of children 2 Impression: The patient has low bone mass, based on the Left Femoral Neck T-score. Discussion: It is important to ask patients whether they are taking their medications and to encourage continued and appropriate compliance with their osteoporosis therapies to reduce fracture risk. It is also important to review their risk factors and encourage appropriate calcium and vitamin D intakes, exercise, fall prevention and other lifestyle measures. Follow-Up: Consider a repeat BMD and Vertebral Fracture Assessment (VFA) exam in 2 years or sooner if medically necessary, to reassess this patient's status. Reported by: Dr. Austin Ramon on 01/05/2022 12:40:00 PM. Reviewed, dictated and finalized at location A. [facility]
== END 2022-01-05 12:18 | disposition home or self-care (01) ==
LOC: CHSIMG 12:18
PROVIDERS: PCP Internal Medicine; Visit Provider Internal Medicine
DX: M81.0 Age-related osteoporosis without current pathological fracture (principal)
CPT/HCPCS: 77080

== ENCOUNTER 2022-06-15 07:16 | Outpatient (CLI) | payer OTHER, SELFPAY ==
[2022-06-15 07:29] LABS: Basophils Absolute Auto 0.04 K/mm3 (0.00-0.10); Basophils Percent Auto 0.9 % (0.0-1.0); Eosinophils Percent Auto 2.2 % (1.0-6.0); Hematocrit 38.8 % (35.0-49.0); Hemoglobin 13.1 g/dL (12.0-15.0); Immature Granulocyte Absolute 0.01 K/mm3 (0.00-0.00); Immature Granulocyte Percent A 0.2 % (0.0-0.0); Lymphocytes Absolute Auto 2.01 K/mm3 (1.10-4.50); Lymphocytes Percent Auto 44.1 % (18.0-42.0); Mean Corpuscular HGB Conc 33.8 g/dL (32.0-36.0); Mean Corpuscular Hemoglobin 30.2 pg (27.0-31.0); Mean Corpuscular Volume 89.4 fL (78.0-102.0); Mean Platelet Volume 10.4 fl (9.2-11.8); Monocytes Absolute Auto 0.39 K/mm3 (0.10-0.90); Monocytes Percent Auto 8.6 % (2.0-11.0); Platelet Count Result 194 K/mm3 (150-420); Red Blood Count 4.34 M/mm3 (4.20-5.40); Red Cell Distribution Width 12.1 % (11.6-14.4); White Blood Count 4.6 K/mm3 (4.8-10.8)
[2022-06-15 07:37] LABS: Appearance Urine Clear (Clear); Bilirubin Urine Negative (Negative); Blood Urine 1+ (Negative); Color Urine Light Yellow (Yellow); Glucose Urine UA Negative (Negative); Ketones Urine Negative (Negative); Leukocyte Esterase Ur 3+ (Negative); Nitrate Urine Negative (Negative); Protein Urine Negative (Negative); Urobilinogen Urine 0.2 mg/dL (0.2-1.0)
[2022-06-15 07:57] LABS: Add Urine Microscopic? YES; Bacteria Urine Trace /hpf; RBC Urine 0-2 /hpf (0-2); Squamous Epithelial Cell Urine Few /hpf (Few)
[2022-06-15 07:59] LABS: Hemoglobin A1C 5.3 % (<5.7)
[2022-06-15 08:57] LABS: Alanine Aminotransferase 31 U/L (14-59); Albumin Level 3.8 g/dL (3.4-5.0); Alkaline Phosphatase 93 U/L (46-116); Anion Gap 8 mmol/L (8-16); Aspartate Amino Transferase 19 U/L (15-37); Bilirubin,Total 0.5 mg/dL (0.00-1.00); Blood Urea Nitrogen 13 mg/dL (7-18); Calcium 9.1 mg/dL (8.5-10.1); Carbon Dioxide 31 mmol/L (21-32); Chloride 107 mmol/L (98-108); Cholesterol 189 mg/dL (0-200); Creatine Kinase 40 U/L (26-192); Estimated Glomerular Filt Rate > 60; Free T3 2.68 pg/mL (2.18-3.98); Glucose 110 mg/dL (70-99); HDL Direct 52 mg/dL (40-60); LDL Cholesterol Calculated 114 mg/dL (<130); Osmolality Calculated 303 mOsm/kg (285-295); Potassium 4.8 mmol/L (3.5-5.1); Sodium 146 mmol/L (136-145); Thyroid Stimulating Hormone 2.56 uIU/mL (0.36-3.74); Total Protein 6.9 g/dL (6.4-8.2); Triglycerides 114 mg/dL (0-150)
== END 2022-06-15 07:17 | disposition home or self-care (01) ==
LOC: CHSLAB 07:17
PROVIDERS: PCP Internal Medicine; Visit Provider Internal Medicine
DX: E78.00 Pure hypercholesterolemia, unspecified (principal); K58.0 Irritable bowel syndrome with diarrhea; E03.9 Hypothyroidism, unspecified; E04.2 Nontoxic multinodular goiter; I10 Essential (primary) hypertension; R73.01 Impaired fasting glucose
CPT/HCPCS: 36415; 80053; 80061; 81001; 82550; 83036; 84439; 84443; 84481; 85025

== ENCOUNTER 2022-07-27 18:23 | Outpatient (CLI) | payer OTHER, SELFPAY ==
[2022-07-27 18:38] LABS: Basophils Absolute Auto 0.05 K/mm3 (0.00-0.10); Basophils Percent Auto 0.7 % (0.0-1.0); Eosinophils Absolute Auto 0.14 K/mm3 (0.02-0.50); Hematocrit 37.8 % (35.0-49.0); Hemoglobin 12.8 g/dL (12.0-15.0); Immature Granulocyte Absolute 0.02 K/mm3 (0.00-0.00); Immature Granulocyte Percent A 0.3 % (0.0-0.0); Lymphocytes Absolute Auto 2.56 K/mm3 (1.10-4.50); Lymphocytes Percent Auto 36.8 % (18.0-42.0); Mean Corpuscular HGB Conc 33.9 g/dL (32.0-36.0); Mean Corpuscular Hemoglobin 30.8 pg (27.0-31.0); Mean Corpuscular Volume 90.9 fL (78.0-102.0); Monocytes Absolute Auto 0.57 K/mm3 (0.10-0.90); Monocytes Percent Auto 8.2 % (2.0-11.0); Neutrophils Absolute Auto 3.6 K/mm3 (1.7-7.2); Platelet Count Result 221 K/mm3 (150-420); Red Blood Count 4.16 M/mm3 (4.20-5.40)
== END 2022-07-27 18:24 | disposition home or self-care (01) ==
LOC: CHSLAB 18:28
PROVIDERS: PCP Internal Medicine; Visit Provider Internal Medicine
DX: D70.9 Neutropenia, unspecified (principal)
CPT/HCPCS: 36415; 85025

== ENCOUNTER 2022-12-10 09:34 | Outpatient (CLI) | payer OTHER, SELFPAY ==
[2022-12-10 09:48] LABS: Basophils Absolute Auto 0.05 K/mm3 (0.00-0.10); Basophils Percent Auto 0.9 % (0.0-1.0); Eosinophils Absolute Auto 0.12 K/mm3 (0.02-0.50); Eosinophils Percent Auto 2.1 % (1.0-6.0); Hematocrit 39.9 % (35.0-49.0); Hemoglobin 13.4 g/dL (12.0-15.0); Immature Granulocyte Absolute 0.02 K/mm3 (0.00-0.00); Immature Granulocyte Percent A 0.3 % (0.0-0.0); Lymphocytes Absolute Auto 2.13 K/mm3 (1.10-4.50); Lymphocytes Percent Auto 36.5 % (18.0-42.0); Mean Corpuscular HGB Conc 33.6 g/dL (32.0-36.0); Mean Corpuscular Hemoglobin 30.1 pg (27.0-31.0); Mean Corpuscular Volume 89.7 fL (78.0-102.0); Mean Platelet Volume 10.3 fl (9.2-11.8); Monocytes Percent Auto 6.9 % (2.0-11.0); Neutrophils Absolute Auto 3.1 K/mm3 (1.7-7.2); Neutrophils Percent Auto 53.3 % (50.0-70.0); Platelet Count Result 219 K/mm3 (150-420); Red Blood Count 4.45 M/mm3 (4.20-5.40); Red Cell Distribution Width 11.9 % (11.6-14.4); White Blood Count 5.8 K/mm3 (4.8-10.8)
[2022-12-10 09:49] LABS: Appearance Urine Clear (Clear); Bilirubin Urine Negative (Negative); Blood Urine Trace-Intact (Negative); Color Urine Light Yellow (Yellow); Glucose Urine UA Negative (Negative); Ketones Urine Negative (Negative); Leukocyte Esterase Ur Trace LEU/UL (Negative); Nitrate Urine Negative (Negative); Protein Urine Negative (Negative); Specific Grav Ur 1.015 (1.010-1.020); Urobilinogen Urine 0.2 mg/dL (0.2-1.0); pH Urine 6.5 (5.0-8.0)
[2022-12-10 09:57] LABS: Hemoglobin A1C 5.3 % (<5.7)
[2022-12-10 10:05] LABS: Add Urine Microscopic? YES; RBC Urine 0-2 /hpf (0-2); Squamous Epithelial Cell Urine Rare /hpf (Few); WBC Urine 0-3 /hpf (0-3)
[2022-12-10 10:06] LABS: Bacteria Urine Trace /hpf
[2022-12-10 10:29] LABS: Alanine Aminotransferase 28 U/L (14-59); Albumin Level 3.9 g/dL (3.4-5.0); Alkaline Phosphatase 97 U/L (46-116); Anion Gap 7 mmol/L (8-16); Aspartate Amino Transferase 17 U/L (15-37); Bilirubin,Total 0.5 mg/dL (0.00-1.00); Blood Urea Nitrogen 12 mg/dL (7-18); Calcium 9.5 mg/dL (8.5-10.1); Carbon Dioxide 30 mmol/L (21-32); Chloride 106 mmol/L (98-108); Cholesterol 190 mg/dL (0-200); Creatine Kinase 39 U/L (26-192); Estimated Glomerular Filt Rate > 60; Free T3 2.37 pg/mL (2.18-3.98); Free T4 Free Thyroxine 0.89 ng/dL (0.76-1.46); Glucose 98 mg/dL (70-99); HDL Direct 49 mg/dL (40-60); LDL Cholesterol Calculated 112 mg/dL (<130); Osmolality Calculated 295 mOsm/kg (285-295); Potassium 4.5 mmol/L (3.5-5.1); Sodium 143 mmol/L (136-145); Thyroid Stimulating Hormone 3.22 uIU/mL (0.36-3.74); Total Protein 6.7 g/dL (6.4-8.2); Triglycerides 143 mg/dL (0-150)
== END 2022-12-10 09:35 | disposition home or self-care (01) ==
LOC: CHSLAB 09:37
PROVIDERS: PCP Internal Medicine; Visit Provider Internal Medicine
DX: N39.0 Urinary tract infection, site not specified (principal); E78.00 Pure hypercholesterolemia, unspecified; E03.9 Hypothyroidism, unspecified; I10 Essential (primary) hypertension; R73.01 Impaired fasting glucose
CPT/HCPCS: 36415; 80053; 80061; 81001; 82550; 83036; 84439; 84443; 84481; 85025

== ENCOUNTER 2023-06-10 09:18 | Outpatient (CLI) | payer OTHER, SELFPAY ==
[2023-06-10 09:32] LABS: Basophils Absolute Auto 0.04 K/mm3 (0.00-0.10); Basophils Percent Auto 0.9 % (0.0-1.0); Eosinophils Absolute Auto 0.11 K/mm3 (0.02-0.50); Eosinophils Percent Auto 2.4 % (1.0-6.0); Hematocrit 40.1 % (35.0-49.0); Hemoglobin 13.3 g/dL (12.0-15.0); Immature Granulocyte Absolute 0.01 K/mm3 (0.00-0.00); Immature Granulocyte Percent A 0.2 % (0.0-0.0); Lymphocytes Absolute Auto 1.79 K/mm3 (1.10-4.50); Lymphocytes Percent Auto 38.6 % (18.0-42.0); Mean Corpuscular HGB Conc 33.2 g/dL (32-36); Mean Corpuscular Hemoglobin 29.6 pg (27.0-31.0); Mean Corpuscular Volume 89.3 fL (78.0-102.0); Mean Platelet Volume 10.5 fl (9.2-11.8); Monocytes Absolute Auto 0.34 K/mm3 (0.10-0.90); Monocytes Percent Auto 7.3 % (2.0-11.0); Neutrophils Absolute Auto 2.35 K/mm3 (1.70-7.20); Neutrophils Percent Auto 50.6 % (50.0-70.0); Platelet Count Result 211 K/mm3 (150-420); Red Blood Count 4.49 M/mm3 (4.20-5.40); Red Cell Distribution Width 11.9 % (11.6-14.4); White Blood Count 4.6 K/mm3 (4.8-10.8)
[2023-06-10 09:45] LABS: Appearance Urine Clear (Clear); Bilirubin Urine Negative (Negative); Blood Urine Trace-intact (Negative); Color Urine Light Yellow (Yellow); Glucose Urine UA Negative (Negative); Ketones Urine Negative (Negative); Leukocyte Esterase Ur Negative LEU/UL (Negative); Nitrate Urine Negative (Negative); Protein Urine Negative (Negative); Urobilinogen Urine 0.2 mg/dL (0.2-1.0)
[2023-06-10 10:01] LABS: Add Urine Microscopic? YES; Bacteria Urine 1+ /hpf; RBC Urine 0-2 /hpf (0-2); Squamous Epithelial Cell Urine Few /hpf (Few); WBC Urine None seen /hpf (0-3)
[2023-06-10 10:07] LABS: Hemoglobin A1C 5.4 % (<5.7)
[2023-06-10 10:37] LABS: Alanine Aminotransferase 16 U/L (14-59); Albumin Level 3.7 g/dL (3.4-5.0); Alkaline Phosphatase 85 U/L (46-116); Anion Gap 8 mmol/L (4-12); Aspartate Amino Transferase 16 U/L (15-37); Bilirubin,Total 0.5 mg/dL (0.00-1.00); Blood Urea Nitrogen 14 mg/dL (7-18); Carbon Dioxide 29 mmol/L (21-32); Chloride 105 mmol/L (98-108); Cholesterol 195 mg/dL (0-200); Creatine Kinase 53 U/L (26-192); Estimated Glomerular Filt Rate > 60; Free T3 2.41 pg/mL (2.18-3.98); Free T4 Free Thyroxine 0.78 ng/dL (0.76-1.46); Glucose 100 mg/dL (70-99); HDL Direct 50 mg/dL (40-60); LDL Cholesterol Calculated 112 mg/dL (<130); Osmolality Calculated 294 mOsm/kg (285-295); Potassium 4.4 mmol/L (3.5-5.1); Sodium 142 mmol/L (136-145); Thyroid Stimulating Hormone 2.56 uIU/mL (0.36-3.74); Total Protein 6.5 g/dL (6.4-8.2); Triglycerides 167 mg/dL (0-150)
== END 2023-06-10 09:19 | disposition home or self-care (01) ==
LOC: CHSLAB 09:20
PROVIDERS: PCP Internal Medicine; Visit Provider Internal Medicine
DX: N39.0 Urinary tract infection, site not specified (principal); E03.9 Hypothyroidism, unspecified; I10 Essential (primary) hypertension; R73.01 Impaired fasting glucose; E78.00 Pure hypercholesterolemia, unspecified
CPT/HCPCS: 36415; 80053; 80061; 81001; 82550; 83036; 84439; 84443; 84481; 85025

== ENCOUNTER 2023-12-30 08:29 | Outpatient (CLI) | payer OTHER, SELFPAY ==
[2023-12-30 08:41] LABS: Basophils Absolute Auto 0.04 K/mm3 (0.00-0.10); Basophils Percent Auto 0.9 % (0.0-1.0); Eosinophils Percent Auto 2.2 % (1.0-6.0); Hematocrit 39.1 % (35.0-49.0); Hemoglobin 13.2 g/dL (12.0-15.0); Immature Granulocyte Absolute 0.01 K/mm3 (0.00-0.00); Immature Granulocyte Percent A 0.2 % (0.0-0.0); Lymphocytes Absolute Auto 1.66 K/mm3 (1.10-4.50); Lymphocytes Percent Auto 35.7 % (18.0-42.0); Mean Corpuscular HGB Conc 33.8 g/dL (32-36); Mean Corpuscular Hemoglobin 29.7 pg (27.0-31.0); Mean Corpuscular Volume 87.9 fL (78.0-102.0); Mean Platelet Volume 10.3 fl (9.2-11.8); Monocytes Absolute Auto 0.38 K/mm3 (0.10-0.90); Monocytes Percent Auto 8.2 % (2.0-11.0); Neutrophils Absolute Auto 2.46 K/mm3 (1.70-7.20); Neutrophils Percent Auto 52.8 % (50.0-70.0); Platelet Count Result 193 K/mm3 (150-420); Red Blood Count 4.45 M/mm3 (4.20-5.40); Red Cell Distribution Width 12.1 % (11.6-14.4); White Blood Count 4.7 K/mm3 (4.8-10.8)
[2023-12-30 08:45] LABS: Add Urine Microscopic? NO; Appearance Urine Clear (Clear); Bilirubin Urine Negative (Negative); Blood Urine Negative (Negative); Color Urine Light Yellow (Yellow); Glucose Urine UA Negative (Negative); Ketones Urine Negative (Negative); Leukocyte Esterase Ur Negative (Negative); Nitrate Urine Negative (Negative); Protein Urine Negative (Negative); Specific Grav Ur 1.015 (1.010-1.020); Urobilinogen Urine 0.2 mg/dL (0.2-1.0)
[2023-12-30 08:52] LABS: Hemoglobin A1C 5.5 % (<5.7)
[2023-12-30 09:34] LABS: Alanine Aminotransferase 35 U/L (14-59); Albumin Level 3.7 g/dL (3.4-5.0); Alkaline Phosphatase 94 U/L (46-116); Anion Gap 6 mmol/L (4-12); Aspartate Amino Transferase 16 U/L (15-37); Bilirubin,Total 0.3 mg/dL (0.00-1.00); Blood Urea Nitrogen 8 mg/dL (7-18); Calcium 9.6 mg/dL (8.5-10.1); Carbon Dioxide 33 mmol/L (21-32); Chloride 104 mmol/L (98-108); Cholesterol 166 mg/dL (0-200); Creatine Kinase 39 U/L (26-192); Estimated Glomerular Filt Rate > 60; Free T3 2.46 pg/mL (2.18-3.98); Free T4 Free Thyroxine 0.79 ng/dL (0.76-1.46); Glucose 108 mg/dL (70-99); HDL Direct 43 mg/dL (40-60); LDL Cholesterol Calculated 95 mg/dL (<130); Osmolality Calculated 295 mOsm/kg (285-295); Potassium 4.4 mmol/L (3.5-5.1); Sodium 143 mmol/L (136-145); Thyroid Stimulating Hormone 2.55 uIU/mL (0.36-3.74); Total Protein 6.7 g/dL (6.4-8.2); Triglycerides 139 mg/dL (0-150)
== END 2023-12-30 08:30 | disposition home or self-care (01) ==
LOC: CHSLAB 08:31
PROVIDERS: PCP Internal Medicine; Visit Provider Internal Medicine
DX: R73.01 Impaired fasting glucose (principal); E03.4 Atrophy of thyroid (acquired); E78.2 Mixed hyperlipidemia
CPT/HCPCS: 36415; 80053; 80061; 81003; 82550; 83036; 84439; 84443; 84481; 85025

== ENCOUNTER 2024-01-31 13:24 | Outpatient (CLI) | payer OTHER, SELFPAY ==
--- NOTE | ~2024-01-31 | DEXA_ITS ---
Bone Density Report Name: ROSSY LEAVITT Age: 63 Sex: Female Ethnicity: White Date of : 1960 Indication: osteopenia; monitoring treatment; hysterectomy; Referring Provider: Joseph Floyd Study: Bone densitometry was performed. Exam Date: January 31, 2024 Accession number: [id number] Bone Density: Region BMD T-score Z-score Classification AP Spine(L2, L3, L4) 1.131 0.5 2.0 Normal Femoral Neck (Left) 0.573 -2.5 -1.1 Osteoporosis Total Hip (Left) 0.777 -1.4 -0.3 Osteopenia Femoral Neck (Right) 0.593 -2.3 -1.0 Osteopenia Total Hip (Right) 0.724 -1.8 -0.8 Osteopenia Femoral Neck Mean 0.583 -2.4 -1.1 Osteopenia Total Hip Mean 0.750 -1.6 -0.5 Osteopenia World Health Organization criteria for BMD impression classify patients as: Normal (T-score at or above -1.0), Osteopenia (T-score between -1.0 and -2.5), or Osteoporosis (T-score at or below -2.5). 10-year Fracture Risk: FRAX not reported because: Some T-score for Spine Total or Hip Total or Femoral Neck at or below -2.5 Treated for osteoporosis Previous Exams: Region Exam Age BMD T-score BMD Change BMD Change Date g/cm2 vs Baseline vs Previous AP Spine (L2-L4) 01/31/2024 63 1.131 0.5 -0.131 (-10.4% -0.014 (-1.2%) 01/05/2022 61 1.145 0.6 -0.117 (-9.3%) -0.071 (-5.8%) 11/12/2019 59 1.216 1.2 -0.046 (-3.6%) -0.055 (-4.3%) 10/26/2017 57 1.271 1.7 0.009 (0.7%)! -0.023 (-1.8%) 10/23/2014 54 1.294 2.0 0.033 (2.6%)*! -0.015 (-1.2%) 10/05/2013 53 1.310 2.1 0.048 (3.8%)*! 0.008 (0.6%) 09/17/2011 51 1.302 2.0 0.040 (3.2%)*! 0.020 (1.6%) 05/05/2009 48 1.281 1.8 0.020 (1.6%)! 0.020 (1.6%) 04/07/2007 46 1.262 1.7 Total Hip(Left) 01/31/2024 63 0.777 -1.4 0.103 (15.2%)# 0.090 (13.2%)* 01/05/2022 61 0.686 -2.1 0.012 (1.8%)# -0.031 (-4.3%) 11/12/2019 59 0.717 -1.8 0.043 (6.4%)* 0.005 (0.7%) 10/26/2017 57 0.712 -1.9 0.038 (5.6%)* 0.018 (2.7%) 10/23/2014 54 0.694 -2.0 0.020 (2.9%) 0.011 (1.6%) 10/05/2013 53 0.683 -2.1 0.009 (1.3%) 0.005 (0.8%) 09/17/2011 51 0.678 -2.2 0.003 (0.5%) -0.008 (-1.2%) 05/05/2009 48 0.686 -2.1 0.012 (1.7%) 0.012 (1.7%) 04/07/2007 46 0.674 -2.2 Total Hip(Right) 01/31/2024 63 0.724 -1.8 0.021 (3.0%)# -0.030 (-4.0%) 01/05/2022 61 0.754 -1.5 0.051 (7.2%)# 0.060 (8.6%)# 11/12/2019 59 0.694 -2.0 -0.009 (-1.3%) 0.000 (-0.1%) 10/05/2013 53 0.695 -2.0 -0.009 (-1.2%) 0.007 (1.1%) 09/17/2011 51 0.687 -2.1 -0.016 (-2.3%) -0.015 (-2.2%) 05/05/2009 48 0.703 -2.0 -0.001 (-0.1%) -0.001 (-0.1%) 04/07/2007 46 0.703 -2.0 *Denotes significance at 95% confidence level, LSC for AP Spine = 0.022 g/cm2, LSC for Total Hip = 0.027 g/cm2 # Denotes dissimilar scan types or analysis methods Clinical Information Provided by Patient: Is being treated for osteoporosis Has used the following medications: Boniva (i.e. ibandronate), HRT (i.e. estrogen/hormone therapy), Vitamin D, Calcium, multivit Has the following medical conditions: Hysterectomy Patient maximum height was 64.7 Menopause Age: 31 No regular weight bearing exercise Drinks caffeinated beverages Onset of menses at age 15 Number of children 2 Impression: The patient has osteoporosis, based on the Left Femoral Neck T-score. The BMD for the Total Hip(Right) decreased, changing by -4.0% since the last DXA exam. Discussion: SIGNIFICANT BONE LOSS OBSERVED. Adherence to therapy (including calcium and vitamin D intake) should be assessed. If compliance is not a factor, review management and exclusion of secondary causes of bone loss. It is important to ask patients whether they are taking their medications and to encourage continued and appropriate compliance with their osteoporosis therapies to reduce fracture risk. It is also important to review their risk factors and encourage appropriate calcium and vitamin D intakes, exercise, fall prevention and other lifestyle measures. Follow-Up: Consider a repeat BMD and Vertebral Fracture Assessment (VFA) exam in 2 years or sooner if medically necessary, to reassess this patient's status. Reported by: ALYSIA on 01/31/2024 2:02:00 PM. Reviewed, dictated and finalized at location A.
--- NOTE | ~2024-01-31 | MM_ITS ---
EXAMINATION: MM screening mee BI w devaughn HISTORY: Screening mammogram TECHNIQUE: Craniocaudal and mediolateral oblique 3-D tomosynthesis images were obtained and synthetic 2-D images were generated. CAD analysis was submitted and interpreted. COMPARISON: No prior mammogram is available for comparison at this institution. BREAST PARENCHYMAL COMPOSITION:Not Dense. There are scattered areas of fibroglandular density. FINDINGS: No suspicious mass, calcification, or architectural distortion are identified in either rony ast to suggest malignancy. There has been no suspicious interval change. IMPRESSION: No mammographic evidence of malignancy. Recommend routine screening mammography in one year. BI-RADS Category 1: Negative Reviewed, dictated and finalized at location . ING STATION EQUIPMENT MECHANIC
== END 2024-01-31 13:25 | disposition home or self-care (01) ==
PROVIDERS: PCP Internal Medicine; Visit Provider Internal Medicine
DX: Z12.31 Encounter for screening mammogram for malignant neoplasm of breast (principal); Z78.0 Asymptomatic menopausal state; M85.89 Other specified disorders of bone density and structure, multiple sites; M81.0 Age-related osteoporosis without current pathological fracture
CPT/HCPCS: 77063; 77067; 77080

== ENCOUNTER 2024-04-03 10:19 | Outpatient (CLI) | payer OTHER, SELFPAY ==
--- NOTE | ~2024-04-03 | XR_ITS ---
EXAMINATION: XR chest 2V DATE: 04/03/2024 10:43 INDICATION: Cough and wheezing. Shortness of breath. Anterior chest pain. TECHNIQUE: Frontal and lateral views of the chest were obtained. COMPARISON: Chest 2 views 11/04/2014 FINDINGS: There is no pneumonia, pleural effusion, or pneumothorax. The heart size is normal. IMPRESSION: 1. No acute cardiopulmonary disease. Reviewed, dictated and finalized at location B. RIBUTION MANAGER
[2024-04-03 10:37] LABS: Hematocrit 40.9 % (35.0-49.0); Hemoglobin 13.6 g/dL (12.0-15.0); Mean Corpuscular HGB Conc 33.3 g/dL (32-36); Mean Corpuscular Hemoglobin 28.9 pg (27.0-31.0); Mean Platelet Volume 10.4 fl (9.2-11.8); Platelet Count Result 203 K/mm3 (150-420); Red Cell Distribution Width 12.3 % (11.6-14.4); White Blood Count 3.3 K/mm3 (4.8-10.8)
[2024-04-03 10:58] LABS: Band Neutrophils Percent 1 % (0-6); Basophils Absolute Manual 0.03 K/mm3 (0-0.1); Basophils Percent Manual 1 % (0-1); Eosinophils Absolute Manual 0.06 K/mm3 (0.02-0.50); Eosinophils Percent Manual 2 % (1-6); Lymphocytes Absolute Manual 1.41 K/mm3 (1.1-4.5); Lymphocytes Percent Manual 43 % (18-44); Monocytes Absolute Manual 0.39 K/mm3 (0.1-0.90); Monocytes Percent Manual 12 % (3-9); Neutrophils Absolute Manual 1.38 K/mm3 (1.7-7.2); Neutrophils Percent Manual 41 % (46-73); Total Cells Counted 100
[2024-04-03 10:59] LABS: Platelet Estimate Adequate (Adequate)
== END 2024-04-03 10:20 | disposition home or self-care (01) ==
LOC: CHSLAB 10:22
PROVIDERS: PCP Internal Medicine; Visit Provider Internal Medicine
DX: R05.9 Cough, unspecified (principal)
CPT/HCPCS: 36415; 71046; 85025

== ENCOUNTER 2024-04-17 19:52 | Emergency (ER) | payer OTHER, SELFPAY ==
[2024-04-17] VITALS (14 sets, daily range): BP systolic 142–174; BP diastolic 77–99; PULSE 92–113; RESP 18–20; TEMP 37.6–38.4; O2SAT 91–96
--- NOTE | ~2024-04-17 | XR_ITS ---
CHEST RADIOGRAPH CLINICAL HISTORY: sob . COMPARISON: 04/03/2024 TECHNIQUE: Single portable view of the chest. FINDINGS The cardiomediastinal silhouette is unremarkable. The lungs are clear. Visualized osseous structures and soft tissues are unremarkable. IMPRESSION: No focal infiltrate or effusion. Reviewed, dictated and finalized at location A. OR SOFTWARE TEST ENGINEER
--- OUTSIDE RECORDS SUMMARY | 2024-04-17 19:55 | XMS_ITS | Encounter Summary ---
Author Organization [facility] Address [address] [place] [address] Care Team Providers Care Electrical Hardware Engineer Name Role Phone Joseph Floyd MD Primary Care Provider [phone] Joseph Floyd MD Unavailable [phone] Encounter Details Date Type Department Care Team (Late st Contact Info) Description 04/06/2011 [place] Only [facility] [place] [facility] [place] [facility] [address] [place] [address] Scanning, Provider Social History Tobacco Use Types Packs/Day Years Used Date Smoking Tobacco: Never Assessed Comments Unknown Sex and Gender Information Value Date Recorded Sex Assigned at Not on file Legal Sex Female 10:15 AM HAM SAWYER Gender Identity Female 05/30/2021 6:49 AM CDT Sexual Orientation Not on file documented as of this encounter Plan of Treatment Not on file documented as of this encounter Procedures Procedure Name Priority Date/Time Associated Diagnosis Comments GI - RESULT 04/06/2011 SCAN - LABS 04/06/2011 documented in this encounter Results * SCAN - LABS (04/06/2011) us Provider Scanning Final Result * GI - RESULT (04/06/2011) Anatomical Region Laterality Modality Other us Provider Scanning Edited Result - Final documented in this encounter Visit Diagnoses Not on filedocumented in this encounter Care Teams Electrical Hardware Engineer Relationship Specialty Start Date End Date Joseph Floyd MD [address] [place] [address] PCP - General 06/28/17 Joseph Floyd MD [address] [place] [address] Referring Physician Internal Medicine 07/14/18 documented as of this encounter
--- OUTSIDE RECORDS SUMMARY | 2024-04-17 19:55 | XMS_ITS | Encounter Summary ---
Author Organization [facility] Address [address] [place] [address] Care Team Providers Care Metal Tile Setter Name Role Phone Joseph Floyd MD Primary Care Provider [phone] Joseph Floyd MD Unavailable Encounter Details Date Type Department Care Team (Late st Contact Info) Description 03/31/2015 Orders Only [facility] Health Information Management [address] [place] [address] Scanning, Provider Social History Tobacco Use Types Packs/Day Years Used Date Smoking Tobacco: Never Assessed Comments Unknown Sex and Gender Information Value Date Recorded Sex Assigned at Not on file Legal Sex Female 10:15 AM CUTTER BANANA ROOM Gender Identity Female 05/30/2021 6:49 AM CDT Sexual Orientation Not on file documented as of this encounter Plan of Treatment Not on file documented as of this encounter Procedures Procedure Name Priority Date/Time Associated Diagnosis Comments GI - RESULT 03/31/2015 SCAN - PATHOLOGY 03/31/2015 documented in this encounter Results * SCAN - PATHOLOGY (03/31/2015) us Provider Scanning Final Result * GI - RESULT (03/31/2015) Anatomical Region Laterality Modality Other us Provider Scanning Final Result documented in this encounter Visit Diagnoses Not on filedocumented in this encounter Care Teams Metal Tile Setter Relationship Specialty Start Date End Date Joseph Floyd MD [address] [place] [address] PCP - General 06/28/17 Joseph Floyd MD [address] [place] [address] Referring Physician Internal Medicine 07/14/18 documented as of this encounter
--- OUTSIDE RECORDS SUMMARY | 2024-04-17 19:55 | XMS_ITS | CONTINUITY OF CARE DOCUMENT ---
Author Name taye, taye Address Unknown Organization [facility] [address] [address] Address [address] [place] [address] Phone [phone] Care Team Providers Care It Communications Manager Name Role Phone Tarik Burgess MD Unavailable CHRISTOPHER LEUNG MD Unavailable CHRISTOPHER LEUNG MD Unavailable PROBLEMS Condition Status Date Provider Notes Family History of Hypertension: active ? Adriel Burgess MD Other symptoms involving car diovascular system active Tarik Burgess MD isolated PVC's active Tarik Burgess MD Palpitations active Tarik Burgess MD Shortness of breath active Tarik Burgess MD Hypothyroidism active Tarik Burgess MD ENCOUNTERS Date Type Provider Location Encounter Diag nosis - In-person encounter Office Visit Tarik Burgess MD [facility] - In-person encounter Office Visit Tarik Burgess MD [facility] Family History of Hypertension:Other symptoms involving cardiovascular systemisolated PVC'sPalpitationsShortness of breathHypothyroidism VITAL SIGNS Date Observation Value Provider blood pressure, diastolic 82 mm[Hg] Us samantha Burgess MD blood pressure, systolic 132 mm[Hg] Tenzin Burgess MD pulse rate 74 /min Tarik Burgess MD oxygen saturation, oximetry 99 % Tarik Burgess MD respiratory rate E&M 16 /min Tarik vivar MD Body Mass Index (Ratio) 24.89 kg/m2 Adriel Burgess MD weight E&M 145 [lb_av] Tarik Burgess MD blood pressure, diastolic 81 mm[Hg] Lory Hdzbeatrice Negro blood pressure, systolic 145 mm[Hg] Ebony Gallardo Marky Body Mass Index (Ratio) 25.71 kg/m2 Lorin Calvillo Negro pulse rate 63 /min Chari Johnny mamie oxygen saturation, oximetry 99 % Chari Ayalaenson respiratory rate E&M 16 /min Edagr thomas Negro weight E&M 149.8 [lb_av] Chari salmon height E&M 64 [in_i] Chari Johnny jasonsanjeev ALLERGIES Allergy Name Onset Date Reaction Criticality Status MORPHINE High Criticality active HISTORY OF MEDICATION USE Medication Status Instructions Dates Provider Indications Com ments BIOTIN CAPSULE active 8 Tarik Burgess MD METOPROLOL SUCCINATE ER 25 MG ORAL TABLET EXTENDED RELEASE 24 HOUR completed one tab. daily - 8 Tarik Burgess MD MULTIVITAMINS ORAL CAPSULE active ONE TAB. DAILY Chari Negro SOCIAL HISTORY Date Observation Value Provider alcohol use, type mimimal Tarik strickland MD alcohol use yes Tarik Burgess MD smoking status Never smoker Tarik Burgess MD social history reviewed E&M reviewed - no changes required Tarik Burgess MD alcohol use, type mimimal Tarik strickland MD alcohol use yes Tarik Burgess MD social history E&M Patient has n ever smoked. Smoking History: P atient has never smoked. Tarik Burgess MD social history reviewed E&M reviewed - no changes required Tarik Burgess MD smoking status Never smoker Tarik Burgess MD FAMILY HISTORY Family Member Condition Mother Family History of Co ronary Artery Disease: Mother Family History of Hy pertension: Mother Family History of Di abetes: Full Sister Family History of Co ronary Artery Disease: Full Sister Family History of Di abetes: Full Brother Family History of Di abetes: INSURANCE PROVIDERS Payer name Policy type / Coverage type [place] [employer] [id number] TREATMENT PLAN Date Name Performer Cardiology printed to yue Burgess MD Date Name Complete Echo HISTORY OF PROCEDURES Procedure Date Procedure Name Provider Procedure Notes S tatus EKG Tarik Burgess MD completed
--- OUTSIDE RECORDS SUMMARY | 2024-04-17 19:55 | XMS_ITS | Encounter Summary ---
Author Organization [facility] Address [address] [place] [address] Care Team Providers Care Shucker Name Role Phone Joseph Floyd MD Primary Care Provider [phone] Joseph Floyd MD Unavailable [phone] Reason for Visit * Diagnostic Imaging (Routine) - Closed Specialty Diagnoses / Procedures Referred By Contac kameron Referred To Contact Procedures Breast Imaging Screening Outside Reference Transcribed Order, Provider Referral ID Status Reason Start Date Expiration Date Visits Re quested Visits Authorized [id number] Closed 01/07/2023 02/06/2024 1 1 Encounter Details Date Type Department Care Team (Late st Contact Info) Description 11/12/2019 Hospital Encounter [facility] [address] [place] [address] Social History Tobacco Use Types Packs/Day Years Used Date Smoking Tobacco: Never Smokeless Tobacco: Never Alcohol Use Standard Drinks/Week Comments Not Currently 0 (1 standard drink = 0.6 oz pur e alcohol) AUDIT-C Answer Date Recorded Frequency of Alcohol Consumption Never 07/17/2018 Average Number of Drinks Not on file 019 Frequency of Binge Drinking Not on file 08/2018 Personal Safety Answer Date Recorded Getting School Help Needed Not on file 03/31 Comments No Sex and Gender Information Value Date Recorded Sex Assigned at Not on file Legal Sex Female 10:15 AM ACCOUNTING ASSISTANT Gender Identity Female 05/30/2021 6:49 AM CDT [...] and have not been reviewed by [facility] Radiology. ??There will be no report generated by a [facility] Radiologist. Narrative [facility]MO[facility] - 01/07/2023 10:15 AM CDT EXAMINATION: ??Images For Reference Purposes Only us Provider Transcribed Order IMG MAMMO PROCEDURES Final Result Performing Organization Address City/State/[facility] Co de Phone Number [facility] documented in this encounter Visit Diagnoses Not on filedocumented in this encounter Care Teams Shucker Relationship Specialty Start Date End Date Joseph Floyd MD [address] [place] [address] PCP - General 06/28/17 Joseph Floyd MD [address] [place] [address] Referring Physician Internal Medicine 07/14/18 documented as of this encounter
--- OUTSIDE RECORDS SUMMARY | 2024-04-17 19:55 | XMS_ITS | Clinical Summary ---
Author Organization [facility] Physician Office Building [address] [place] [id number] Care Team Providers Care Workers Compensation Claims Analyst Name Role Phone Joseph Floyd MD Primary Care Provider [phone] Joseph Floyd MD Unavailable [phone] Allergies No known active allergies Medications levothyroxine (SYNTHROID, LEVOTHROID) 50 mcg tablet Take 1 tablet (50 mcg total) by mouth daily 1 06/25/2018 Active cholecalciferol (Vitamin D3) 1,000 unit capsule Active losartan (COZAAR) 25 mg tablet Take 1 tablet (25 mg total) by mouth daily 04/14/2021 Active melatonin 5 mg capsule Active multivit,calc,mi ns/iron/folic (ONE-A-DAY WOMENS FORMULA ORAL) Active nortriptyline (PAMELOR) 10 mg capsule Take 1 capsule (10 mg total) by mouth nightly 04/14/2021 Active polyethylene glycol (Miralax) 17 gram/dose powder Active rosuvastatin (CRESTOR) 5 mg tablet Take 1 tablet (5 mg total) by mouth daily 05/23/2021 Active busPIRone (BUSPAR) 10 mg tablet 12/25/2022 Active PARoxetine (PAXIL) 20 mg tablet 12/25/2022 Active estradioL (Imvexxy Maintenance Pack) 10 mcg insert vaginal insertIndication s:Genitourinary syndrome of menopause Insert 10 mcg into the vagina 2 (two) times a week 24 each 3 03/31/2023 Active Active Problems Problem Noted Date Diagnosed Date Thyroid nodule 06/30/2017 Cardiovascular symptoms 11/07/2014 Palpitations 11/07/2014 Shortness of breath 11/07/2014 Hypothyroidism 11/07/2014 Ventricular premature beats 11/07/2014 Surgical History Surgery Date Site/Laterality Comments TUBAL LIGATION HYSTERECTOMY 03/14/1991 - 03/13/1992 AUB KNEE SURGERY Medical History Medical History Date Comments Chronic fatigue syndrome IBS (irritable bowel syndrome) Osteoporosis Hypercholesteremia Hypertension Anxiety Depression Thyroid disease Family History Medical History Relation Name Comments Diabetes Brother 1 Vladimir Hypertension Brother 1 Vladimir Diabetes Brother 2 Benedict Depression Daughter 1 Heaven Depression Daughter 2 Megan Alcohol abuse Father Vijay Diabetes Father Vijay Heart disease Father Vijay Hypertension Father Vijay Cancer Father's Sister Theodore Diabetes Maternal Grandmother Elgie Diabetes Mother Talya Heart attack Mother Talya Heart disease Mother Talya Hypertension Mother Talya Arthritis Paternal Grandmother Jeancarlos Heart attack Paternal Grandmother Jeancarlos Heart disease Paternal Grandmother Jeancarlos Hypertension Paternal Grandmother Jeancarlos Arthritis Sister 1 Laverne Cancer Sister 1 Laverne Depression Sister 1 Laverne Diabetes Sister 1 Laverne Heart attack Sister 1 Laverne Hypertension Sister 1 Laverne Melanoma Sister 1 Laverne Family history of malignant melanoma - (Added by TW Conv) Cancer Sister 2 Annalisa Diabetes Sister 2 Annalisa Heart disease Sister 2 Annalisa Thyroid cancer Sister 2 Annalisa Family histor y of malignant neoplasm of thyroid - (Added by TW Conv) Relation Name Status Comments Brother 1 Vladimir Brother 2 Benedict Daughter 1 Heaven Daughter 2 Megan Father Vijay Father's Sister Theodore Maternal Grandmother Elgie Mother Talya Paternal Grandmother Jeancarlos Sister 1 Laverne Sister 2 Annalisa Social History Tobacco Use Types Packs/Day Years Used Date Smoking Tobacco: Never Smokeless Tobacco: Never Tobacco Cessation:Counseling Given: Not Answered Alcohol Use Standard Drinks/Week Comments Not Currently [...] on file Legal Sex Female 10:15 AM PACK PULLER Gender Identity Female 05/30/2021 6:49 AM CDT Sexual Orientation Not on file 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 t on file Obstetrics History Para Term AB IAB SAB Ectopic Multiple Livin g Live Births 2 2 2 2 2 Date Outcome GA Total Labor Labor/2nd/3rd Weight Sex Type Anes PTL Manju A1 A5 Name Clin 1981 Term F Vag-S pont Living 1986 Term F Vag-S pont Living Last Filed Vital Signs Vital Sign Reading Time Taken Comments Blood Pressure 143/86 03/31/2023 9:44 AM PACK PULLER Pulse - - Temperature - - Respiratory Rate - - Oxygen Saturation - - Inhaled Oxygen Concentration - - Weight 78.3 kg (172 lb 9.6 oz) 03/31/2023 9:44 A M PACK PULLER Height 165 cm (5' 4.96 ) 03/31/2023 9:44 AM PACK PULLER Body Mass Index 28.76 03/31/2023 9:44 AM PACK PULLER Plan of Treatment Health Maintenance Due Date Last Done Comments Colon Cancer Screening-Colonoscopy 1962 Depression Screening 1962 Hepatitis C Screening 1962 Hepatitis B Screening 1980 Covid-19 Vaccine ( season) 2023 06/27/2020, 05/30/2020 Breast Cancer Screening-Mammogram 01/07/2024 01/06/2023 Regular Well Visit/Exam 18-64 03/31/2024 03/31/2023 DTaP/Tdap/Td Vaccine (2 - Td or Tdap) 11/20/2030 11/20/2020 Zoster Vaccine Completed 09/27/2019, 10/11/2018 Influenza Vaccine Completed 01/12/2024, , 11/20/2020, Additional history exists Pneumococcal vaccine <65 Aged Out No longer eligible based on patient's age to complete this topic Procedures Procedure Name Priority Date/Time Associated Diagnosis Comments SCREENING MAMMOGRAM BILATERAL W JOSE Schedule Routine, Read Routine (OP Routine) 01/06/2023 12:13 PM CDT Screening mammogram, encounter for from Last 3 Months or Most Recently Relevant to Health Maintenance Results * Screening Mammogram Bilateral W Jose (01/06/2023 12:13 PM CDT) Anatomical Region Laterality Modality Breast Bilateral Mammography Narrative 01/07/2023 3:27 PM CDT Mammogram Technique: Bilateral Digital Breast Tomosynthesis, Bilateral C-view 2D Screening mammogram. ??Views obtained: ??bilateral craniocaudal and bilateral mediolateral oblique. ??Computer Aided Detection was performed. Mammogram Findings: The present examination has been compared to prior imaging studies performed at [place], [place] on 11/12/2019, 11/25/2020 and 12/18/2021. The breasts are heterogeneously dense, which may obscure small masses. There is no suspicious abnormality in either breast. Impression: There is no mammographic evidence of malignancy. Annual screening mammography is recommended.If supplemental screening is desired, breast MRI would be recommended in this patient with heterogeneously dense breasts. OVERALL FINAL ASSESSMENT: BI-RADS CATEGORY 1: ??Negative. Procedure Note Lacey Gee MD - 01/07/2023 Mammogram Technique: Bilateral Digital Breast Tomosynthesis, Bilateral C-view 2D Screening mammogram. Views obtained: bilateral craniocaudal and bilateral mediolateral oblique. Computer Aided Detection was performed. Mammogram Findings: The present examination has been compared to prior imaging studies performed at [place], [place] on11/12/2019, 11/25/2020 and 12/18/2021. The breasts are heterogeneously dense, which may obscure small masses. There is no suspicious abnormality in either breast. Impression: There is no mammographic evidence of malignancy. Annual screening mammography is recommended.If supplemental screening is desired, breast MRI would be recommended in this patient with heterogeneously dense breasts. OVERALL FINAL ASSESSMENT: BI-RADS CATEGORY 1: Negative. us Self Screening Mammogram IMG MAMMO PROCEDURES Fi nal Result from Last 3 Months or Most Recently Relevant to Health Maintenance Insurance [facility] H[facility]PP[facility] Address: [address] [place] [address] [facility] Address: [address] [place] [address] [facility] Address: [address] [place] [address] Care Teams Workers Compensation Claims Analyst Relationship Specialty Start Date End Date Joseph Floyd MD [address] [place] [address] PCP - General 06/28/17 Joseph Floyd MD [address] [place] [address] Referring Physician Internal Medicine 07/14/18
--- OUTSIDE RECORDS SUMMARY | 2024-04-17 19:55 | XMS_ITS | Encounter Summary ---
Author Organization [facility] Address [address] [place] [address] Care Team Providers Care Medical Assistant Prn Name Role Phone Joseph Floyd MD Primary Care Provider [phone] Joseph Floyd MD Unavailable [phone] Encounter Details Date Type Department Care Team (Late st Contact Info) Description 03/29/2011 Orders Only [facility] Health Information Management [address] [place] [address] Scanning, Provider Social History Tobacco Use Types Packs/Day Years Used Date Smoking Tobacco: Never Assessed Comments Unknown Sex and Gender Information Value Date Recorded Sex Assigned at Not on file Legal Sex Female 10:15 AM ORDERLY Gender Identity Female 05/30/2021 6:49 AM CDT Sexual Orientation Not on file documented as of this encounter Plan of Treatment Not on file documented as of this encounter Procedures Procedure Name Priority Date/Time Associated Diagnosis Comments SCAN - RADIOLOGY/IMAGING 03/29/2011 documented in this encounter Results * SCAN - RADIOLOGY/IMAGING (03/29/2011) Anatomical Region Laterality Modality Other us Provider Scanning Final Result documented in this encounter Visit Diagnoses Not on filedocumented in this encounter Care Teams Medical Assistant Prn Relationship Specialty Start Date End Date Joseph Floyd MD [address] [place] [address] PCP - General 06/28/17 Joseph Floyd MD [address] [place] [address] Referring Physician Internal Medicine 07/14/18 documented as of this encounter
--- OUTSIDE RECORDS SUMMARY | 2024-04-17 19:55 | XMS_ITS | Encounter Summary ---
Author Organization [facility] Address [address] [place] [address] Care Team Providers Care Mosaic Worker Name Role Phone Joseph Floyd MD Primary Care Provider [phone] Joseph Floyd MD Unavailable [phone] Encounter Details Date Type Department Care Team (Late st Contact Info) Description 02/11/2015 Orders Only [facility] Health Information Management [address] [place] [address] Scanning, Provider Social History Tobacco Use Types Packs/Day Years Used Date Smoking Tobacco: Never Assessed Comments Unknown Sex and Gender Information Value Date Recorded Sex Assigned at Not on file Legal Sex Female 10:15 AM ROOF SHINGLER Gender Identity Female 05/30/2021 6:49 AM CDT Sexual Orientation Not on file documented as of this encounter Plan of Treatment Not on file documented as of this encounter Procedures Procedure Name Priority Date/Time Associated Diagnosis Comments SCAN - RADIOLOGY/IMAGING 02/11/2015 SCAN - LABS 02/11/2015 documented in this encounter Results * SCAN - LABS (02/11/2015) us Provider Scanning Final Result * SCAN - RADIOLOGY/IMAGING (02/11/2015) Anatomical Region Laterality Modality Other us Provider Scanning Final Result documented in this encounter Visit Diagnoses Not on filedocumented in this encounter Care Teams Mosaic Worker Relationship Specialty Start Date End Date Joseph Floyd MD [address] [place] [address] PCP - General 06/28/17 Joseph Floyd MD [address] [place] [address] Referring Physician Internal Medicine 07/14/18 documented as of this encounter
--- OUTSIDE RECORDS SUMMARY | 2024-04-17 19:55 | XMS_ITS | Referral Summary ---
Author Organization [facility] Physician Office Building [address] [place] [phone] Care Team Providers Care Academic Vice President Name Role Phone Joseph Floyd MD Primary Care Provider [phone] Joseph Floyd MD Unavailable [phone] Allergies No known active allergies Medications levothyroxine [...] 11/07/2014 Hypothyroidism 11/07/2014 Ventricular premature beats 11/07/2014 Social History Tobacco Use Types Packs/Day Years [...] on file Legal Sex Female 10:15 AM SURFBOARD MAKER Gender Identity Female 05/30/2021 6:49 AM CDT Sexual Orientation Not on file 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 t on file Last Filed Vital Signs Vital Sign Reading Time Taken Comments Blood Pressure 143/86 03/31/2023 9:44 AM SURFBOARD MAKER Pulse - - Temperature - - Respiratory Rate - - Oxygen Saturation - - Inhaled Oxygen Concentration - - Weight 78.3 kg (172 lb 9.6 oz) 03/31/2023 9:44 A M SURFBOARD MAKER Height 165 cm (5' 4.96 ) 03/31/2023 9:44 AM SURFBOARD MAKER Body Mass Index 28.76 03/31/2023 9:44 AM SURFBOARD MAKER Plan of Treatment Not on file Procedures Procedure Name Priority Date/Time Associated Diagnosis [...] compared to prior imaging studies performed at [place], [place] on 11/12/2019, 11/25/2020 and 12/18/2021. The [...] compared to prior imaging studies performed at [place], [place] on11/12/2019, 11/25/2020 and 12/18/2021. The breasts are heterogeneously dense, which may obscure small masses. There is no suspicious abnormality in either breast. Impression: There is no mammographic evidence of malignancy. Annual screening mammography is recommended.If supplemental screening is desired, breast MRI would be recommended in this patient with heterogeneously dense breasts. OVERALL FINAL ASSESSMENT: BI-RADS CATEGORY 1: Negative. Self Screening Mammogram IMG MAMMO PROCEDURES Fi nal Result from Last 3 Months or Most Recently Relevant to Health Maintenance Insurance [facility]ICE PLUS [facility] H[facility]/PPO Address: [place] [address] [facility] H[facility]/PPO Address: [address] [place] [address] [employer] CHOICE PLUS [facility] H[facility]/PPO Address: [place] [address] Care Teams Academic Vice President Relationship Specialty Start Date End Date Joseph Floyd MD [address] [place] [address] PCP - General 06/28/17 Joseph Floyd MD [address] [place] [address] Referring Physician Internal Medicine 07/14/18
--- OUTSIDE RECORDS SUMMARY | 2024-04-17 19:55 | XMS_ITS | Clinical Summary ---
Author Organization [facility] Address [address] Attn: Epic Prelude ADT HERMINIO CRENSHAW [address] Care Team Providers Care Bleacher Lard Name Role Phone Unavailable Primary Care Provider Unavailabl e Social History Tobacco Use Types Packs/Day Years Used Date Smoking Tobacco: Never Assessed Comments Unknown Sex and Gender Information Value Date Recorded Sex Assigned at Not on file Legal Sex Female 5:42 AM STAFF MECHANICAL ENGINEER Gender Identity Not on file Sexual Orientation Not on file Plan of Treatment Health Maintenance Due Date Last Done Comments DTAP/TDAP/TD VACCINES (1 - Tdap) 1981 CERVICAL CANCER SCREENING 1992 BREAST CANCER SCREENING 2002 COLORECTAL SCREENING 09/06/2007 Colorectal Cancer Screening 09/06/2007 FIT-DNA Q 3 years 09/06/2007 FIT/FOBT Q 1 year 09/06/2007 Flex Sig/CT Colonography Q 5 years 09/06/2007 ZOSTER VACCINE (1 of 2) 2012 INFLUENZA VACCINE (#1) 2023 RSV VACCINE (60+ or ) (1 - 1-dose 75+ series) 2037 PNEUMOCOCCAL VACCINE 0-64 YEARS Aged Out No longer eligible based on patient's age to complete this topic
--- OUTSIDE RECORDS SUMMARY | 2024-04-17 19:55 | XMS_ITS | Encounter Summary ---
Author Organization [facility] Healthcare Address [address] [place] [address] Care Team Providers Care Unit Controller Name Role Phone Joseph Floyd MD Primary Care Provider [phone] Joseph Floyd MD Unavailable [phone] Reason for Visit * Diagnostic Imaging (Routine) - Closed Specialty Diagnoses / Procedures Referred By Cash melo Referred To Contact Diagnoses Screening mammogram, encounter for Procedures Breast Imaging Screening Outside Reference Transcribed Order, Provider Referral ID Status Reason Start Date Expiration Date Visits Re quested Visits Authorized [id number] Closed 01/07/2023 02/06/2024 1 1 Encounter Details Date Type Department Care Team (Late st Contact Info) Description 10/31/2018 Hospital Encounter [facility] Radiology [facility] [address] [place] [address] Social History Tobacco Use Types Packs/Day Years [...] on file Legal Sex Female 10:15 AM RN SPINE Gender Identity Female 05/30/2021 6:49 AM CDT [...] only and have not been reviewed by [facility] Radiology. ??There will be no report generated by a [facility] Radiologist. Narrative [facility]MO[facility] - 01/07/2023 10:15 AM CDT EXAMINATION: ??Images For Reference Purposes Only us Provider Transcribed Order IMG MAMMO PROCEDURES Final Result Performing Organization Address City/State/[facility] Co de Phone Number [facility] documented in this encounter Visit Diagnoses Not on filedocumented in this encounter Care Teams Unit Controller Relationship Specialty Start Date End Date Joseph Floyd MD [address] [place] [address] PCP - General 06/28/17 Joseph Floyd MD [address] [place] [address] Referring Physician Internal Medicine 07/14/18 documented as of this encounter
--- OUTSIDE RECORDS SUMMARY | 2024-04-17 19:55 | XMS_ITS | Encounter Summary ---
Author Organization [facility] Address 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 ? [place], [place] ??[id number] ? Patient: ??ROSSY WILLIAMSON ? : ??1960 ? Procedure Date: ??05/21/2008 ? Accession Date: ??05/21/2008 ? Case No: ??[id number] ? Ordering Dr: ??ANNIE DIAMOND ? Case types AW, BW, FW, NW and SH are performed by [facility] ? [facility], [place], [place] ?SURGICAL PATHOLOGY & NON-GYNECOLOGIC CYTOPATHOLOGY REPORT ? DIAGNOSIS ? STOMACH, ANTRUM, BIOPSY: ? - CHRONIC INFLAMMATION, MINIMAL. ? - SMALL INTESTINAL MUCOSA PRESENT (SEE DESCRIPTION). ? COLON, HEPATIC FLEXURE, BIOPSY: ? - TUBULAR ADENOMA, THREE FRAGMENTS. ? COLON, SIGMOID, BIOPSY: ? - TUBULAR ADENOMA. ? RECTUM, BIOPSY: ? - HYPERPLASTIC POLYP. ? Specimen Description: ? (1) Antrum; (2) hepatic flexure; (3) sigmoid; (4) rectum. ? Operative Procedure: ? Colonoscopy and EGD. ? Patient Information/History/Di agnosis: ? (1) Gastritis. Rule out H. pylori infection. (2), (3) and (4) Colon ? polyp(s). Adenomatous vs. hyperplastic vs. other. ??Additional history: ? abdominal pain, constipation, diarrhea. ? Gross: ? Four containers are received labeled Rossy Williamson. The first specimen is ? received in a container labeled antrum. It consists of two pieces of cortes ? tissue each measuring 0.3 cm in greatest dimension. The specimen is ? submitted entirely labeled A1. ? The second specimen is received in a container labeled hepatic flexure. ? It consists of three pieces of cortes tissue ranging from 0.3 to 0.4 cm in ? greatest dimension. The specimen is submitted entirely labeled B1. ? The third specimen is received in a container labeled sigmoid. It ? consists of a single piece of cortes tissue measuring 0.2 x 0.2 x 0.1 cm. The ? specimen is submitted entirely labeled C1. ? The fourth specimen is received in a container labeled rectum. It ? consists of a single piece of cortes tissue measuring 0.2 x 0.2 x 0.1 cm. The ? specimen is submitted entirely labeled D1. ? BRANDI/GELY 05.22.2008 08:07 am ? Microscopic: ? The slides are labeled [id number] and Rossy Williamson. ? The sections of the antrum biopsy show two fragments of tissue. One ? represents foveolar gastric mucosa, with areas of intestinal tissue. The ? other tissue fragment represents small bowel mucosa, with features of ? foveolar gastric type mucosa, focally. ??This tissue could be from the ? junction of the stomach and duodenum, and would explain both tissue types ? in each fragment. An endoscopy report is not available for review. If this ? tissue is not from the stomach/small bowel junction, this could represent ? either foveolar or intestinal metaplasia, depending on the origin of the ? tissue. ??An active inflammatory infiltrate is not seen. There is a minor ? increase of the chronic inflammatory cells. An immunostain for Helicobacter ? pylori is negative for organisms. There is no evidence of dysplasia or ? malignancy. This case was shown and discussed at the daily, ? interdepartmental slide review conference, with consensus agreement with ? the diagnosis. ? The sections of the hepatic flexure biopsy show three fragments of a ? tubular adenoma, with no evidence of high-grade dysplasia or malignancy. ? The sections of the sigmoid biopsy show a tubular adenoma, with no evidence ? of high-grade dysplasia or malignancy. ? The sections of the rectal biopsy show a hyperplastic polyp. ? Note on use of immunocytochemistry reagents: This test was developed and ? its performance characteristic determined by [facility] ? [place], Department of Laboratory Medicine. It has not been cleared or ? approved by the U.S. Food and Drug Administration. The FDA has determined ? that such clearance or approval is not necessary. The test is used for ? clinical purpose. It should not be regarded as investigational or for ? research. This laboratory is certified to perform high complexity clinical ? testing. ? OJL/SKW 05.22.2008 03:17 pm ? Staging Form: ? No. ? ELECTRONIC SIGNATURE FOR DENISE CHAMPAGNE M.D.- 05/22/08 03:39 pm INTERFACE SYSTEM 05/21/2008 3:52 PM CDT us Annie Diamond MD PATHOLOGY/CYTOLOGY ORDERABLE S Final Result INTERFACE SYSTEM Refer to clinic/hospital department documented in this encounter Visit Diagnoses Not on filedocumented in this encounter
--- NOTE | 2024-04-17 19:56 | ED.URI ---
HPI - URI/Sore Throat General Chief Complaint: Headache Stated Complaint: Cough/Fever Time Seen by Provider: 04/17/24 19:55 Source: patient Mode of arrival: ambulatory Limitations: no limitations History of Present Illness HPI Narrative: patient is a 63-year-old female with illness for the past 2 weeks. She tested positive 2 weeks ago for COVID and influenza A. She had a chest x-ray that was clear. She started to feel better and then worse again over the past 10 days. She is here now with feeling much worse this evening for evaluation. MD elicited complaint: fever, cough, rhinorrhea and nasal congestion Pertinent past history: other ( Negative) Onset (ago): week(s) (2) Consistency: constant Severity: moderate ( back ache) Pain scale (0-10): 3 Description of mucous: clear Able to tolerate fluids by mouth: Yes Exacerbating factors: nothing Relieving factors: nothing Context: sick contacts Associated symptoms: fever, chills, myalgias, headache, rhinorrhea, nasal congestion and cough Treatments prior to arrival: acetaminophen and ibuprofen Related Data Home Medications ?Medication ?Instructions ?Recorded ?Confirmed ?Last Taken ?Type cholecalciferol (vitamin D3) 25 25 mcg PO DAILY 07/16/20 11/03/20 07/20/20 History mcg (1,000 unit) tablet (Vitamin D3) escitalopram oxalate 10 mg tablet 10 mg PO DAILY 07/16/20 11/03/20 07/24/20 History famotidine 20 mg tablet (Pepcid) 20 mg PO DAILY 07/16/20 11/03/20 07/20/20 History ibandronate 150 mg tablet 150 mg PO MONTHLY 07/16/20 11/03/20 06/26/20 History levothyroxine 50 mcg tablet 50 mcg PO DAILY 07/16/20 11/03/20 07/25/20 04:30 History losartan 25 mg tablet 25 mg PO DAILY 07/16/20 11/03/20 07/24/20 History melatonin 3 mg tablet 3 mg PO 07/16/20 11/03/20 07/20/20 History multivitamin 1 tablet PO DAILY 07/16/20 11/03/20 07/20/20 History nortriptyline 10 mg capsule 10 mg PO HS 07/16/20 11/03/20 07/24/20 History polyethylene glycol 3350 17 gram 17 g PO BID 07/16/20 11/03/20 07/24/20 History oral powder packet (Miralax) rosuvastatin 5 mg tablet 5 mg PO HS 07/16/20 11/03/20 07/24/20 History Allergies Allergy/AdvReac Type Severity Reaction Status Date / Time No Known Allergies Allergy Verified 04/17/24 22:04 Review of Systems Review of Systems: All systems reviewed & are unremarkable except as noted in HPI and below Constitutional: Constitutional: Reports no additional constitutional complaints Eyes: Eyes: Reports no additional eye complaints ENT: Reports system reviewed and no additional complaints, except as documented Cardiovascular: Cardiovascular: Reports no additional cardiovascular complaints Respiratory: Respiratory: Reports no additional respiratory complaints Gastrointestinal: Gastrointestinal: Reports no additional gastrointestinal complaints Genitourinary: Genitourinary: Reports no additional female genitourinary complaints Musculoskeletal: Musculoskeletal: Reports no additional musculoskeletal complaints Integumentary/Breasts: Skin/Breast: Reports system reviewed and no additional complaints, except as docu Neurologic: Reports system reviewed and no additional complaints, except as documented Psychiatric: Psychiatric: Reports no additional psychiatric complaints Endocrine: Endocrine: Reports no additional endocrine complaints Hematologic/Lymphatic: Hematologic/Lymphatic: Reports no additional hematologic/lymphatic complaints Allergic/Immunologic: Allergic/Immunologic: Reports no additional allergic/immunologic complaints [facility] Past Medical History Medical History Depression Anxiety Hypertension Hyperlipidemia Osteoporosis Hypothyroidism IBS (irritable bowel syndrome) Wears glasses Claustrophobia Surgical History Surgical History H/O: hysterectomy 1988 Family History Family History Father Hypertension Cerebrovascular accident Family history of type 2 diabetes mellitus Mother Hypertension Family history of type 2 diabetes mellitus Sibling Hypertension Family history of type 2 diabetes mellitus Other Arthritis Family history of malignant neoplasm of breast Heart disease High cholesterol Melanoma Thyroid cancer Social History Social History Alcohol intake: never Substance use: never Substance use type: does not use Living arrangements: with family Occupation/Education: occupation Gender identity (if verbalized by the patient): Female Spiritual care concerns: No Exam Const: General: ill appearing Nutritional Appearance: well nourished Orientation/consciousness: patient oriented x3 Limitations: no limitations HENMT: Head: normal to inspection Ears: external ears normal Face/Nose/Sinus: Normal external nose present Eyes: Conjunctivae: conjunctivae normal Pupils: Equal, round and reactive pupils present EOM: EOMs intact bilaterally Neck: Neck: normal visual inspection Chest: Chest palpation & inspection: normal inspection of the chest Resp: Effort & Inspection: normal respiratory effort, not labored, no retractions, not tachypneic and no use of accessory muscles Auscultation: not clear to auscultation bilaterally, no crackles, no rales, rhonchi, no wheezes, breath sounds present and diminished lung sounds Cardio: Rate: regular rate Rhythm: regular rhythm Heart sounds: no murmurs GI: Inspection: non-distended GI Palp: Yes Soft to palpation and No Tenderness to palpation present (GI) Auscultation: normal bowel sounds : General: Yes bladder normal to palpation Back/Spine/Pelvis: Back: no CVA tenderness Skin: General skin exam: normal color Rashes: no rashes Wounds: no wounds Neuro: General: patient oriented x3 Cranial nerves: Yes Nystagmus not present Speech: normal speech Extrem: General: normal to inspection Psych: Mental Status: mental status grossly normal Affect: normal affect Course Vital Signs Vital signs: Vital Signs Temperature 37.6 C 04/17/24 19:52 Pulse Rate 113 H 04/17/24 19:52 Respiratory Rate 20 04/17/24 19:52 Blood Pressure 174/99 H 04/17/24 19:52 Pulse Oximetry 94 04/17/24 19:52 Oxygen Delivery Room Air 04/17/24 19:52 Temperature 38.4 C H 04/17/24 21:41 Pulse Rate 93 04/17/24 22:45 Respiratory Rate 18 04/17/24 21:45 Blood Pressure 146/83 H 04/17/24 22:45 Pulse Oximetry 91 04/17/24 22:45 Oxygen Delivery Room Air 04/17/24 19:52 MDM - URI/Sore Throat MDM Narrative Medical decision making narrative: patient is a 63-year-old female with continued viral syndrome and possibly superinfection. We will do COVID viral panel and chest x-ray. Lab Data Attestation: I reviewed the patient's lab results. Labs: Lab Results 04/17/24 Range/Units 20:05 Influenza A (RT-PCR) Positive A (Negative) Influenza B (RT-PCR) Negative (Negative) RSV (RT-PCR) Negative (Negative) SARS-CoV-2 RNA (RT-PCR) Positive A (Negative) Imaging Data Attestation: I personally reviewed and interpreted this imaging study as follows: Radiologist's impression: Chest x-ray is negative for acute process Discharge Plan Discharge Clinical Impression: COVID, Influenza A Patient Disposition: Home, Self-Care Condition: Stable Instructions: Influenza (DC), COVID-19 (Coronavirus Disease 2019) (ED) Patient Language: Nigerian Prescriptions: New oseltamivir [Tamiflu] 75 mg capsule 75 mg PO BID 5 Days Qty: 10 0RF amoxicillin-pot clavulanate 875-125 mg tablet 1 tablet PO BID 10 Days Qty: 20 0RF prednisone 20 mg tablet 40 mg PO DAILY 3 Days Qty: 6 0RF acetaminophen-codeine 120 mg-12 mg /5 mL (5 mL) solution 10 ml PO Q8H PRN (Reason: pain) Qty: 200 0RF No Action multivitamin Tablet 1 tablet PO DAILY polyethylene glycol 3350 [Miralax] 17 gram Powder In Packet 17 g PO BID melatonin 3 mg Tablet 3 mg PO HS famotidine [Pepcid] 20 mg Tablet 20 mg PO DAILY levothyroxine 50 mcg tablet 50 mcg PO DAILY nortriptyline 10 mg capsule 10 mg PO HS losartan 25 mg tablet 25 mg PO DAILY escitalopram oxalate 10 mg tablet 10 mg PO DAILY rosuvastatin 5 mg tablet 5 mg PO HS ibandronate 150 mg tablet 150 mg PO MONTHLY Patient Comments: PT TAKES ON THE OF THE MONTH cholecalciferol (vitamin D3) [Vitamin D3] 25 mcg (1,000 unit) Tablet 25 mcg PO DAILY hydrocodone-acetaminophen 5-325 mg tablet 1 tablet PO Q8H PRN (Reason: PAIN) Qty: 30 0RF Follow-up/Referrals: Joseph Floyd MD [Primary Care Provider] - Time of Disposition: 23:06
--- NOTE | 2024-04-17 20:13 | PC.NURSE ---
XRAY AT THE BEDSIDE
--- OUTSIDE RECORDS SUMMARY | 2024-04-17 20:38 | XMS_ITS | Referral Summary ---
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 t on file Last Filed Vital Signs Vital Sign Reading Time Taken Comments Blood Pressure 143/86 03/31/2023 9:44 AM TRAINING AND DEVELOPMENT REP Pulse - - Temperature - - Respiratory Rate - - Oxygen Saturation - - Inhaled Oxygen Concentration - - Weight 78.3 kg (172 lb 9.6 oz) 03/31/2023 9:44 A M TRAINING AND DEVELOPMENT REP Height 165 cm (5' 4.96 ) 03/31/2023 9:44 AM TRAINING AND DEVELOPMENT REP Body Mass Index 28.76 03/31/2023 9:44 AM TRAINING AND DEVELOPMENT REP Plan of Treatment Not on file Procedures [...] compared to prior imaging studies performed at [place], [place] on 11/12/2019, 11/25/2020 and 12/18/2021. The [...] compared to prior imaging studies performed at [place], [place] on11/12/2019, 11/25/2020 and 12/18/2021. The breasts [...] Most Recently Relevant to Health Maintenance Insurance [facility] CHOICE PLUS [facility] CHOICE PLUS U[employer] CHOICE PLUS Care Teams Mold Breaker Relationship Specialty Start Date End Date Joseph Floyd MD [address] [place] [address] PCP - General 06/28/17 Joseph Floyd MD [address] [place] [address] Referring Physician Internal Medicine 07/14/18
--- OUTSIDE RECORDS SUMMARY | 2024-04-17 20:38 | XMS_ITS | Encounter Summary ---
Author Organization [facility] Medical Group Address [address] [place] [address] Care Team Providers Care Centrifugal Chiller Technician Name Role Phone Joseph Floyd MD Primary Care Provider [phone] Joseph Floyd MD Unavailable [phone] Encounter Details Date Type Department Care Team (Late st Contact Info) Description 03/29/2011 Orders Only [facility] Health Information Management [address] [place] [address] Scanning, Provider Social History Tobacco Use Types Packs/Day Years Used Date Smoking Tobacco: Never Assessed Comments Unknown Sex and Gender Information Value Date Recorded Sex Assigned at Not on file 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
--- OUTSIDE RECORDS SUMMARY | 2024-04-17 20:38 | XMS_ITS | Encounter Summary ---
Author Organization [facility] Healthcare Address [address] [place] [address] Care Team Providers Care Bulk Plant Operator Name Role Phone Joseph Floyd MD Primary Care Provider [phone] Joseph Floyd MD Unavailable [phone] Reason for Visit * Diagnostic Imaging (Routine) - Closed Specialty Diagnoses / Procedures Referred By Cash melo Referred To Contact Diagnoses Screening mammogram, encounter for Procedures Breast Imaging Screening Outside Reference Transcribed Order, Provider Referral ID Status Reason Start Date Expiration Date Visits Re quested Visits Authorized [id number] Closed 01/07/2023 02/06/2024 1 1 Encounter Details Date Type Department Care Team (Late st Contact Info) Description 10/31/2018 Hospital Encounter [facility] Radiology [facility] [address] [place] [address] Social History Tobacco Use Types Packs/Day Years [...] on file 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 ??There will be no report generated by a [facility] Radiologist. Narrative [facility]MO[facility] - 01/07/2023 10:15 AM CDT EXAMINATION: ??Images For Reference Purposes Only us Provider Transcribed Order IMG MAMMO PROCEDURES Final Result Performing Organization Address City/State/[facility] Co de Phone Number [facility] documented in this encounter Visit Diagnoses Not on filedocumented in this encounter Care Teams Bulk Plant Operator Relationship Specialty Start Date End Date Joseph Floyd MD [address] [place] [address] PCP - General 06/28/17 Joseph Floyd MD [address] [place] [address] Referring Physician Internal Medicine 07/14/18 documented as of this encounter
--- OUTSIDE RECORDS SUMMARY | 2024-04-17 20:38 | XMS_ITS | Encounter Summary ---
Author Organization [facility] Healthcare Address [address] [place] [address] Care Team Providers Care Upholstery Handler Name Role Phone Joseph Floyd MD Primary Care Provider [phone] Joseph Floyd MD Unavailable [phone] Reason for Visit * Diagnostic Imaging (Routine) - Closed Specialty Diagnoses / Procedures Referred By Contac kameron Referred To Contact Procedures Breast Imaging Screening Outside Reference Transcribed Order, Provider Referral ID Status Reason Start Date Expiration Date Visits Re quested Visits Authorized [id number] Closed 01/07/2023 02/06/2024 1 1 Encounter Details Date Type Department Care Team (Late st Contact Info) Description 11/12/2019 Hospital Encounter [facility]iology [facility] [address] [place] [address] Social History Tobacco Use Types Packs/Day Years [...] on file 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 ??There will be no report generated by a [facility] Radiologist. Narrative [facility]MO[facility] - 01/07/2023 10:15 AM CDT EXAMINATION: ??Images For Reference Purposes Only us Provider Transcribed Order IMG MAMMO PROCEDURES Final Result Performing Organization Address City[facility] Co de Phone Number [facility] documented in this encounter Visit Diagnoses Not on filedocumented in this encounter Care Teams Upholstery Handler Relationship Specialty Start Date End Date Joseph Floyd MD [address] [place] [address] PCP - General 06/28/17 Joseph Floyd MD [address] [place] [address] Referring Physician Internal Medicine 07/14/18 documented as of this encounter
--- OUTSIDE RECORDS SUMMARY | 2024-04-17 20:38 | XMS_ITS | CONTINUITY OF CARE DOCUMENT ---
Author Name taye, taye Address Unknown Organization [facility] Address [address] [place] [address] Phone [phone] Care Team Providers Care Lumber Racker Name Role Phone Tarik Burgess MD Unavailable CHRISTOPHER LEUNG MD Unavailable [phone] CHRISTOPHER LEUNG MD Unavailable PROBLEMS Condition Status [...] In-person encounter Office Visit Tarik Burgess MD [facility] - In-person encounter Office Visit Tarik Burgess MD [facility] Family History of Hypertension:Other symptoms [...] Chari Ayalaenson respiratory rate E&M 16 /min Edgar thomas Negro weight E&M 149.8 [lb_av] Chari [...] Payer name Policy type / Coverage type [employer] party ID [employer] 9 [id number] TREATMENT PLAN Date Name Performer Cardiology printed to yue Burgess MD Date Name Complete Echo HISTORY OF PROCEDURES Procedure Date Procedure Name Provider Procedure Notes S tatus EKG Tarik Burgess MD completed
--- OUTSIDE RECORDS SUMMARY | 2024-04-17 20:38 | XMS_ITS | Encounter Summary ---
Author Organization [facility] Address [address] [place] [address] Care Team Providers Care Residential Door Unit Installer Name Role Phone Joseph Floyd MD Primary Care Provider [phone] Joseph Floyd MD Unavailable [phone] Encounter Details Date Type Department Care Team (Late st Contact Info) Description 02/11/2015 Orders Only [facility] [place] Health Information Management [address] [place] [address] Scanning, Provider Social History Tobacco Use Types Packs/Day Years Used Date Smoking Tobacco: Never Assessed Comments Unknown Sex and Gender Information Value Date Recorded Sex Assigned at Not on file 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
--- OUTSIDE RECORDS SUMMARY | 2024-04-17 20:38 | XMS_ITS | Encounter Summary ---
Author Organization [facility] Address [address] [place] [address] Care Team Providers Care Electrical Accessories Assembler Name Role Phone Joseph Floyd MD Primary Care Provider [phone] Joseph Floyd MD Unavailable [phone] Encounter Details Date Type Department Care Team (Late st Contact Info) Description 04/06/2011 Orders Only [facility] Health Information Management [address] [place] [address] Scanning, Provider Social History Tobacco Use Types Packs/Day Years Used Date Smoking Tobacco: Never Assessed Comments Unknown Sex and Gender Information Value Date Recorded Sex Assigned at Not on file Legal Sex Female 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
--- OUTSIDE RECORDS SUMMARY | 2024-04-17 20:38 | XMS_ITS | Clinical Summary ---
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
--- OUTSIDE RECORDS SUMMARY | 2024-04-17 20:38 | XMS_ITS | Clinical Summary ---
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 Gender Identity Female 05/30/2021 6:49 AM CDT [...] Comments Blood Pressure 143/86 03/31/2023 9:44 AM PERIPHERAL EQUIPMENT OPERATOR Pulse - - Temperature - - Respiratory Rate - - Oxygen Saturation - - Inhaled Oxygen Concentration - - Weight 78.3 kg (172 lb 9.6 oz) 03/31/2023 9:44 A M PERIPHERAL EQUIPMENT OPERATOR Height 165 cm (5' 4.96 ) 03/31/2023 9:44 AM PERIPHERAL EQUIPMENT OPERATOR Body Mass Index 28.76 03/31/2023 9:44 AM PERIPHERAL EQUIPMENT OPERATOR Plan of Treatment Health Maintenance Due Date [...] compared to prior imaging studies performed at [place], [place] on 11/12/2019, 11/25/2020 and 12/18/2021. The [...] compared to prior imaging studies performed at [place], [place] on11/12/2019, 11/25/2020 and 12/18/2021. The breasts [...] Most Recently Relevant to Health Maintenance Insurance [facility] CHOICE PLUS Care Teams Director Clinical Pharmacology Relationship Specialty Start Date End Date Joseph Floyd MD [address] [place] [address] PCP - General 06/28/17 Joseph Floyd MD [address] [place] [address] Referring Physician Internal Medicine 07/14/18
--- OUTSIDE RECORDS SUMMARY | 2024-04-17 20:38 | XMS_ITS | Encounter Summary ---
Author Organization [facility] Address [address] [place] [address] Care Team Providers Care Refining Still Operator Name Role Phone Unavailable Primary Care Provider Unavailabl e Encounter Details Date Type Department Care Team (Late st Contact Info) Description 05/21/2008 Outpatient Historical [facility], [address] Annie Diamond MD [address] 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 ? [place], [place] ??[address] ? Patient: ??ROSSY WILLIAMSON ? : ??1960 ? Procedure Date: ??05/21/2008 ? Accession Date: ??05/21/2008 ? Case No: ??[id number] ? Ordering Dr: ??ANNIE DIAMOND ? Case types AW, BW, FW, NW and SH are performed by [facility] ? [facility], [place], [place] ?SURGICAL PATHOLOGY & NON-GYNECOLOGIC CYTOPATHOLOGY REPORT ? [...] ? Microscopic: ? The slides are labeled [id number] and Rossy Williamson. ? The sections of [...] and ? its performance characteristic determined by [facility] ? [place], Department of Laboratory Medicine. It has not [...]
--- OUTSIDE RECORDS SUMMARY | 2024-04-17 20:38 | XMS_ITS | Encounter Summary ---
Author Organization [facility] Address [address] [facility] [address] [place] [address] Care Team Providers Care Charge Manager Name Role Phone Joseph Floyd MD Primary Care Provider [phone] Joseph Floyd MD Unavailable [phone] Encounter Details Date Type Department Care Team (Late st Contact Info) Description 03/31/2015 Orders Only [facility] [place] Health Information Management [address] [place] [address] Scanning, Provider Social History Tobacco Use Types Packs/Day Years Used Date Smoking Tobacco: Never Assessed Comments Unknown Sex and Gender Information Value Date Recorded Sex Assigned at Not on file Legal Sex Female 10:15 AM TECHNICAL 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
[2024-04-17 20:47] LABS: Influenza A QL RT-PCR Positive (Negative); Influenza B QL RT-PCR Negative (Negative); RSV RNA, RT-PCR Negative (Negative); SARS-CoV-2 RNA PCR Positive (Negative)
--- NOTE | 2024-04-17 21:07 | PC.NURSE ---
PATIENT IS RESTING ON STRETCHER. NO NEEDS VOICED. CALL LIGHT IN REACH
[2024-04-17] MEDS: IBUPROFEN 600 MG TABLET PO (21:38)
--- NOTE | 2024-04-17 22:53 | PC.NURSE ---
DR FRENCH AT THE BEDSIDE
[2024-04-17] MEDS: predniSONE 20 MG TABLET 40 MG PO (23:10)
[2024-04-17] MEDS: OSELTAMIVIR PHOSPHATE 75 MG CAPSULE PO (23:10)
[2024-04-17] MEDS: AMOXICILLIN/CLAVULANATE K 875-125 MG TAB 1 TABLET PO (23:10)
[2024-04-17] MEDS: ACETAMINOPHEN/CODEINE ELIXIR (*CRX) 120-12 MG/5 ML UDC 10 ML PO (23:11)
--- NOTE | 2024-04-17 23:18 | PC.NURSE ---
PATIENT REMOVED FROM MONITOR AND IS NOW GETTING DRESSED.
== END 2024-04-17 23:32 | disposition home or self-care (01) ==
PROVIDERS: Emergency Provider Emergency Medicine; PCP Internal Medicine
DX: U07.1 COVID-19 (principal); J10.1 Influenza due to other identified influenza virus with other respiratory manifestations; I10 Essential (primary) hypertension; E03.9 Hypothyroidism, unspecified
CPT/HCPCS: 71045; 87637; 99283; A9270; J7512

== ENCOUNTER 2024-07-07 10:02 | Outpatient (CLI) | payer OTHER, SELFPAY ==
--- OUTSIDE RECORDS SUMMARY | 2024-07-07 10:06 | XMS_ITS | Clinical Summary ---
Author Organization [facility] Address [address] [facility] Attn: Epic Prelude ADT HERMINIO CRENSHAW [address] Care Team Providers Care Cloth Mender Name Role Phone Unavailable Primary Care Provider Unavailabl e Social History Tobacco Use Types Packs/Day Years Used Date Smoking Tobacco: Never Assessed Comments Unknown Sex and Gender Information Value Date Recorded Sex Assigned at Not on file Legal Sex Female 5:42 AM POLICE CLERK Gender Identity Not on file Sexual Orientation Not on file Plan of Treatment Health Maintenance Due Date Last Done Comments DTAP/TDAP/TD VACCINES (1 - Tdap) 1981 HPV/Cotest (21-29) 09/06/1983 CERVICAL CANCER SCREENING 1992 HPV/Cotest (30-65) 1992 PAP SMEAR 1992 BREAST CANCER SCREENING 2002 COLORECTAL SCREENING 09/06/2007 Colorectal Cancer Screening 09/06/2007 FIT-DNA Q 3 years 09/06/2007 FIT/FOBT Q 1 year 09/06/2007 Flex Sig/CT Colonography Q 5 years 09/06/2007 ZOSTER VACCINE (1 of 2) 2012 INFLUENZA VACCINE (#1) 2023 RSV VACCINE (60+ or ) (1 - 1-dose 75+ series) 2037
--- OUTSIDE RECORDS SUMMARY | 2024-07-07 10:06 | XMS_ITS | Clinical Summary ---
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 MACHINE HELPER Gender Identity Female 05/30/2021 6:49 AM CDT [...] Comments Blood Pressure 143/86 03/31/2023 9:44 AM EDGER MACHINE HELPER Pulse - - Temperature - - Respiratory Rate - - Oxygen Saturation - - Inhaled Oxygen Concentration - - Weight 78.3 kg (172 lb 9.6 oz) 03/31/2023 9:44 A M EDGER MACHINE HELPER Height 165 cm (5' 4.96 ) 03/31/2023 9:44 AM EDGER MACHINE HELPER Body Mass Index 28.76 03/31/2023 9:44 AM EDGER MACHINE HELPER Plan of Treatment Health Maintenance Due Date [...] compared to prior imaging studies performed at [place], [place] on 11/12/2019, 11/25/2020 and 12/18/2021. The breasts are heterogeneously dense, which may obscure small masses. There is no suspicious abnormality in either breast. Impression: There is no mammographic evidence of malignancy. Annual screening mammography is recommended.If supplemental screening is desired, breast MRI would be recommended in this patient with heterogeneously dense breasts. OVERALL FINAL ASSESSMENT: BI-RADS CATEGORY 1: Negative. Procedure Note Lacey Gee MD - 01/07/2023 Mammogram Technique: Bilateral Digital Breast Tomosynthesis, Bilateral C-view 2D Screening mammogram. Views obtained: bilateral craniocaudal and bilateral mediolateral oblique. Computer Aided Detection was performed. Mammogram Findings: The present examination has been compared to prior imaging studies performed at [place], [place] on11/12/2019, 11/25/2020 and 12/18/2021. The breasts [...] Most Recently Relevant to Health Maintenance Insurance [facility] CHOICE PLUS CHOICE PLUS Care Teams Lighter Captain Relationship Specialty Start Date End Date Joseph Floyd MD [address] [place] [address] PCP - General 06/28/17 Joseph Floyd MD [address] [place] [address] Referring Physician Internal Medicine 07/14/18
--- OUTSIDE RECORDS SUMMARY | 2024-07-07 10:06 | XMS_ITS | Encounter Summary ---
Author Organization [facility] Address [address] [place] [address] Care Team Providers Care Mate Ship Name Role Phone Joseph Floyd MD Primary Care Provider [phone] Joseph Floyd MD Unavailable [phone] Reason for Visit * Diagnostic Imaging (Routine) - Closed Specialty Diagnoses / Procedures Referred By Cash melo Referred To Contact Diagnoses Screening mammogram, encounter for Procedures Breast Imaging Screening Outside Reference Transcribed Order, Provider Referral ID Status Reason Start Date Expiration Date Visits Re quested Visits Authorized [id number] Closed 01/07/2023 02/06/2024 1 1 Encounter Details Date Type Department Care Team (Late st Contact Info) Description 10/31/2018 Hospital Encounter [facility] [address] [place] [address] Social History Tobacco Use Types Packs/Day Years [...] on file Legal Sex Female 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. There will be no report generated by a [facility] Radiologist. Narrative [facility] - 01/07/2023 10:15 AM CDT EXAMINATION: Images For Reference Purposes Only us Provider Transcribed Order IMG MAMMO PROCEDURES Final Result [facility] documented in this encounter Visit Diagnoses Not on filedocumented in this encounter Care Teams Mate Ship Relationship Specialty Start Date End Date Joseph Floyd MD [address] [place] [address] PCP - General 06/28/17 Joseph Floyd MD [address] [place] [address] Referring Physician Internal Medicine 07/14/18 documented as of this encounter
--- OUTSIDE RECORDS SUMMARY | 2024-07-07 10:06 | XMS_ITS | CONTINUITY OF CARE DOCUMENT ---
Author Name taye, taye Address Unknown Organization [facility] Address [address] [place] [address] Phone [phone] Care Team Providers Care Stem Maker Name Role Phone Tarik Burgess MD Unavailable [phone] CHRISTOPHER LEUNG MD Unavailable CHRISTOPHER LEUNG MD [...] In-person encounter Office Visit Tarik Burgess MD [place] [facility] - In-person encounter Office Visit Tarik Burgess MD [facility] Family History of Hypertension:Other symptoms involving cardiovascular [...] Payer name Policy type / Coverage type [place] [employer] 9 [id number] TREATMENT PLAN Date Name Performer Cardiology printed to yue Burgess MD Date Name Complete Echo HISTORY OF PROCEDURES Procedure Date Procedure Name Provider Procedure Notes S tatus EKG Tarik Burgess MD completed
--- OUTSIDE RECORDS SUMMARY | 2024-07-07 10:06 | XMS_ITS | Encounter Summary ---
Author Organization [facility] Address [address] [place] [address] Care Team Providers Care Transport Medic Name Role Phone Joseph Floyd MD Primary Care Provider [phone] Joseph Floyd MD Unavailable [phone] Encounter Details Date Type Department Care Team (Late st Contact Info) Description 03/31/2015 Orders Only [facility] Health Information Management [address] [place] [address] Scanning, Provider Social History Tobacco Use Types Packs/Day Years Used Date Smoking Tobacco: Never Assessed Comments Unknown Sex and Gender Information Value Date Recorded Sex Assigned at Not on file Legal Sex Female 10: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
--- OUTSIDE RECORDS SUMMARY | 2024-07-07 10:06 | XMS_ITS | Encounter Summary ---
Author Organization [facility] Address 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 Gender Identity Not on file Sexual Orientation Not on file documented as of this encounter Plan of Treatment Not on file documented as of this encounter Procedures Procedure Name Priority Date/Time Associated Diagnosis Comments PATHOLOGY Routine 05/21/2008 3:52 PM CDT documented in this encounter Results * PATHOLOGY (05/21/2008 3:52 PM CDT) FINAL REPORT [address] [address] Patient: ROSSY WILLIAMSON : 1960 Procedure Date: 05/21/2008 Accession Date: 05/21/2008 Case No: [id number] Ordering Dr: ANNIE DIAMOND Case types AW, BW, FW, NW and SH are performed by [facility], [place], [place] SURGICAL PATHOLOGY & NON-GYNECOLOGIC CYTOPATHOLOGY REPORT DIAGNOSIS STOMACH, ANTRUM, BIOPSY: - CHRONIC INFLAMMATION, MINIMAL. - SMALL INTESTINAL MUCOSA PRESENT (SEE DESCRIPTION). COLON, HEPATIC FLEXURE, BIOPSY: - TUBULAR ADENOMA, THREE FRAGMENTS. COLON, SIGMOID, BIOPSY: - TUBULAR ADENOMA. RECTUM, BIOPSY: - HYPERPLASTIC POLYP. Specimen Description: (1) Antrum; (2) hepatic flexure; (3) sigmoid; (4) rectum. Operative Procedure: Colonoscopy and EGD. Patient Information/History/Di agnosis: (1) Gastritis. Rule out H. pylori infection. (2), (3) and (4) Colon polyp(s). Adenomatous vs. hyperplastic vs. other. Additional history: abdominal pain, constipation, diarrhea. Gross: Four containers are received labeled Rossy Williamson. The first specimen is received in a container labeled antrum. It consists of two pieces of cortes tissue each measuring 0.3 cm in greatest dimension. The specimen is submitted entirely labeled A1. The second specimen is received in a container labeled hepatic flexure. It consists of three pieces of cortes tissue ranging from 0.3 to 0.4 cm in greatest dimension. The specimen is submitted entirely labeled B1. The third specimen is received in a container labeled sigmoid. It consists of a single piece of cortes tissue measuring 0.2 x 0.2 x 0.1 cm. The specimen is submitted entirely labeled C1. The fourth specimen is received in a container labeled rectum. It consists of a single piece of cortes tissue measuring 0.2 x 0.2 x 0.1 cm. The specimen is submitted entirely labeled D1. BRANDI/GELY 05.22.2008 08:07 am Microscopic: The slides are labeled [id number] and Rossy Williamson. The sections of the antrum biopsy show two fragments of tissue. One represents foveolar gastric mucosa, with areas of intestinal tissue. The other tissue fragment represents small bowel mucosa, with features of foveolar gastric type mucosa, focally. This tissue could be from the junction of the stomach and duodenum, and would explain both tissue types in each fragment. An endoscopy report is not available for review. If this tissue is not from the stomach/small bowel junction, this could represent either foveolar or intestinal metaplasia, depending on the origin of the tissue. An active inflammatory infiltrate is not seen. There is a minor increase of the chronic inflammatory cells. An immunostain for Helicobacter pylori is negative for organisms. There is no evidence of dysplasia or malignancy. This case was shown and discussed at the daily, interdepartmental slide review conference, with consensus agreement with the diagnosis. The sections of the hepatic flexure biopsy show three fragments of a tubular adenoma, with no evidence of high-grade dysplasia or malignancy. The sections of the sigmoid biopsy show a tubular adenoma, with no evidence of high-grade dysplasia or malignancy. The sections of the rectal biopsy show a hyperplastic polyp. Note on use of immunocytochemistry reagents: This test was developed and its performance characteristic determined by [facility], Department of Laboratory Medicine. It has not been cleared or approved by the U.S. Food and Drug Administration. The FDA has determined that such clearance or approval is not necessary. The test is used for clinical purpose. It should not be regarded as investigational or for research. This laboratory is certified to perform high complexity clinical testing. OJL/SKW 05.22.2008 03:17 pm Staging Form: No. ELECTRONIC SIGNATURE FOR DENISE CHAMPAGNE M.D.- 05/22/08 03:39 pm INTERFACE SYSTEM 05/21/2008 3:52 PM CDT us Annie Diamond MD PATHOLOGY/CYTOLOGY ORDERABLE S Final Result INTERFACE SYSTEM Refer to clinic/hospital department documented in this encounter Visit Diagnoses Not on filedocumented in this encounter
--- OUTSIDE RECORDS SUMMARY | 2024-07-07 10:06 | XMS_ITS | Referral Summary ---
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 t on file Last Filed Vital Signs Vital Sign Reading Time Taken Comments Blood Pressure 143/86 03/31/2023 9:44 AM MISSION SUPPORT SPECIALIST Pulse - - Temperature - - Respiratory Rate - - Oxygen Saturation - - Inhaled Oxygen Concentration - - Weight 78.3 kg (172 lb 9.6 oz) 03/31/2023 9:44 A M MISSION SUPPORT SPECIALIST Height 165 cm (5' 4.96 ) 03/31/2023 9:44 AM MISSION SUPPORT SPECIALIST Body Mass Index 28.76 03/31/2023 9:44 AM MISSION SUPPORT SPECIALIST Plan of Treatment Not on file Procedures [...] compared to prior imaging studies performed at [place], [place] on 11/12/2019, 11/25/2020 and 12/18/2021. The [...] compared to prior imaging studies performed at [place], [place] on11/12/2019, 11/25/2020 and 12/18/2021. The breasts [...] Most Recently Relevant to Health Maintenance Insurance [facility] CHOICE PLUS [id number] [place] [address] CHOICE PLUS Care Teams Quarter Lining Smoother Relationship Specialty Start Date End Date Joseph Floyd MD [address] [place] [address] PCP - General 06/28/17 Joseph Floyd MD [address] [place] [address] Referring Physician Internal Medicine 07/14/18
--- OUTSIDE RECORDS SUMMARY | 2024-07-07 10:06 | XMS_ITS | Encounter Summary ---
Author Organization [facility] Address [address] [place] [address] Care Team Providers Care Transfer Agent Name Role Phone Joseph Floyd MD Primary Care Provider [phone] Joseph Floyd MD Unavailable [phone] Encounter Details Date Type Department Care Team (Late st Contact Info) Description 04/06/2011 Orders Only [facility] Health Information Management [address] [place] [address] Scanning, Provider Social History Tobacco Use Types Packs/Day Years Used Date Smoking Tobacco: Never Assessed Comments Unknown Sex and Gender Information Value Date Recorded Sex Assigned at Not on file Legal 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
--- OUTSIDE RECORDS SUMMARY | 2024-07-07 10:06 | XMS_ITS | Encounter Summary ---
Author Organization [facility] Medical [facility] Address [address] [place] [address] Care Team Providers Care Director Teen Post Name Role Phone Joseph Floyd MD Primary Care Provider [phone] Joseph Floyd MD Unavailable [phone] Encounter Details Date Type Department Care Team (Late st Contact Info) Description 02/11/2015 Orders Only [facility] Information Management [address] [place] [address] Scanning, Provider Social History Tobacco Use Types Packs/Day Years Used Date Smoking Tobacco: Never Assessed Comments Unknown Sex and Gender Information Value Date Recorded Sex Assigned at Not on file Legal Sex Female 10:15 AM SCREENING UNIT REGISTERED NURSE Gender Identity Female 05/30/2021 6:49 AM CDT [...] on filedocumented in this encounter Care Teams Director Teen Post Relationship Specialty Start Date End Date Joseph Floyd MD [address] [place] [address] PCP - General 06/28/17 Joseph Floyd MD [address] [place] [address] Referring Physician Internal Medicine 07/14/18 documented as of this encounter
--- OUTSIDE RECORDS SUMMARY | 2024-07-07 10:06 | XMS_ITS | Encounter Summary ---
Author Organization [facility] Medical Group Address [address] [place] [address] Care Team Providers Care Squash Centre Manager Name Role Phone Joseph Floyd MD Primary Care Provider [phone] Joseph Floyd MD Unavailable [phone] Encounter Details Date Type Department Care Team (Late st Contact Info) Description 03/29/2011 Orders Only [facility] [place] Health Information Management [address] [place] [address] Scanning, Provider Social History Tobacco Use Types Packs/Day Years Used Date Smoking Tobacco: Never Assessed Comments Unknown Sex and Gender Information Value Date Recorded Sex Assigned at Not on file Legal Sex Female 10:15 AM DOMAIN ARCHITECT Gender Identity Female 05/30/2021 6:49 AM [...] on filedocumented in this encounter Care Teams Squash Centre Manager Relationship Specialty Start Date End Date Joseph Floyd MD [address] [place] [address] PCP - General 06/28/17 Joseph Floyd MD [address] [place] [address] Referring Physician Internal Medicine 07/14/18 documented as of this encounter
--- OUTSIDE RECORDS SUMMARY | 2024-07-07 10:06 | XMS_ITS | Encounter Summary ---
Author Organization [facility] Address [address] [place] [address] Care Team Providers Care Refined Syrup Operator Name Role Phone Joseph Floyd MD Primary Care Provider [phone] Joseph Floyd MD Unavailable [phone] Reason for Visit * Diagnostic Imaging (Routine) - Closed Specialty Diagnoses / Procedures Referred By Contac kameron Referred To Contact Procedures Breast Imaging Screening Outside Reference Transcribed Order, Provider Referral ID Status Reason Start Date Expiration Date Visits Re quested Visits Authorized [id number] Closed 01/07/2023 02/06/2024 1 1 Encounter Details Date Type Department Care Team (Late st Contact Info) Description 11/12/2019 Hospital Encounter [facility] [address] [place] [address] Social History Tobacco Use Types Packs/Day Years [...] on file Legal Sex Female 10:15 AM FREIGHT CHECKER Gender Identity Female 05/30/2021 6:49 AM CDT [...] and have not been reviewed by [facility] Radiology. There will be no report generated by a [facility] Radiologist. Narrative [facility]MO[facility] - 01/07/2023 10:15 AM CDT EXAMINATION: Images For Reference Purposes Only us Provider Transcribed Order IMG MAMMO PROCEDURES Final Result [facility] documented in this encounter Visit Diagnoses Not on filedocumented in this encounter Care Teams Refined Syrup Operator Relationship Specialty Start Date End Date Joseph Floyd MD [address] [place] [address] PCP - General 06/28/17 Joseph Floyd MD [address] [place] [address] Referring Physician Internal Medicine 07/14/18 documented as of this encounter
[2024-07-07 10:24] LABS: Basophils Absolute Auto 0.05 K/mm3 (0.00-0.10); Basophils Percent Auto 0.9 % (0.0-1.0); Eosinophils Absolute Auto 0.13 K/mm3 (0.02-0.50); Eosinophils Percent Auto 2.4 % (1.0-6.0); Hematocrit 38.5 % (35.0-49.0); Immature Granulocyte Absolute 0.01 K/mm3 (0.00-0.00); Immature Granulocyte Percent A 0.2 % (0.0-0.0); Lymphocytes Absolute Auto 1.73 K/mm3 (1.10-4.50); Lymphocytes Percent Auto 31.8 % (18.0-42.0); Mean Corpuscular HGB Conc 33.8 g/dL (32-36); Mean Corpuscular Hemoglobin 29.7 pg (27.0-31.0); Mean Corpuscular Volume 87.9 fL (78.0-102.0); Mean Platelet Volume 10.5 fl (9.2-11.8); Monocytes Percent Auto 7.4 % (2.0-11.0); Neutrophils Absolute Auto 3.12 K/mm3 (1.70-7.20); Neutrophils Percent Auto 57.3 % (50.0-70.0); Platelet Count Result 202 K/mm3 (150-420); Red Blood Count 4.38 M/mm3 (4.20-5.40); Red Cell Distribution Width 12.3 % (11.6-14.4); White Blood Count 5.4 K/mm3 (4.8-10.8)
[2024-07-07 10:25] LABS: Add Urine Microscopic? YES; Appearance Urine Clear (Clear); Bilirubin Urine Negative (Negative); Blood Urine Trace-intact (Negative); Color Urine Light Yellow (Yellow); Glucose Urine UA Negative (Negative); Ketones Urine Negative (Negative); Leukocyte Esterase Ur 1+ (Negative); Nitrate Urine Negative (Negative); Protein Urine Negative (Negative); Specific Grav Ur 1.015 (1.010-1.020); Urobilinogen Urine 0.2 mg/dL (0.2-1.0)
[2024-07-07 10:30] LABS: Creatinine Urine 68.38 mg/dL (40-278); Microalbumin Urine Random < 13.0 mg/L
[2024-07-07 10:36] LABS: Hemoglobin A1C 5.6 % (<5.7)
[2024-07-07 10:40] LABS: Bacteria Urine Trace /hpf; RBC Urine 0-2 /hpf (0-2); Squamous Epithelial Cell Urine Few /hpf (Few)
[2024-07-07 11:12] LABS: Alanine Aminotransferase 56 U/L (14-59); Albumin Level 3.7 g/dL (3.4-5.0); Alkaline Phosphatase 86 U/L (46-116); Anion Gap 9 mmol/L (4-12); Aspartate Amino Transferase 24 U/L (15-37); Bilirubin,Total 0.5 mg/dL (0.00-1.00); Blood Urea Nitrogen 16 mg/dL (7-18); Calcium 9.2 mg/dL (8.5-10.1); Carbon Dioxide 29 mmol/L (21-32); Chloride 105 mmol/L (98-108); Cholesterol 174 mg/dL (0-200); Creatine Kinase 31 U/L (26-192); Estimated Glomerular Filt Rate > 60; Glucose 108 mg/dL (70-99); HDL Direct 51 mg/dL (40-60); LDL Cholesterol Calculated 105 mg/dL (<130); Osmolality Calculated 298 mOsm/kg (285-295); Potassium 4.4 mmol/L (3.5-5.1); Sodium 143 mmol/L (136-145); Thyroid Stimulating Hormone 1.85 uIU/mL (0.36-3.74); Total Protein 6.6 g/dL (6.4-8.2); Triglycerides 92 mg/dL (0-150)
[2024-07-07 11:23] LABS: Free T3 2.47 pg/mL (2.18-3.98)
== END 2024-07-07 10:03 | disposition home or self-care (01) ==
LOC: CHSLAB 10:04
PROVIDERS: PCP Internal Medicine; Visit Provider Internal Medicine
DX: E03.9 Hypothyroidism, unspecified (principal); I10 Essential (primary) hypertension; E78.2 Mixed hyperlipidemia; R73.01 Impaired fasting glucose
CPT/HCPCS: 36415; 80053; 80061; 81001; 82043; 82550; 83036; 84439; 84443; 84481; 85025

== ENCOUNTER 2024-12-30 11:46 | Emergency (ER) | payer OTHER, SELFPAY ==
--- OUTSIDE RECORDS SUMMARY | 2018-10-31 | XMS_ITS | Encounter Summary ---
Author Organization [facility] Healthcare Address [address] [place] [address] Care Team Providers Care Sales Planner Name Role Phone Joseph Floyd MD Primary Care Provider [phone] Joseph Floyd MD Unavailable [phone] Reason for Visit * Diagnostic Imaging (Routine) - Closed Specialty Diagnoses / Procedures Referred By Contalison melo Referred To Contact Diagnoses Screening mammogram, encounter for Procedures Breast Imaging Screening Outside Reference Transcribed Order, Provider Referral ID Status Reason Start Date Expiration Date Visits Re quested Visits Authorized [id number] Closed 01/07/2023 02/06/2024 1 1 Encounter Details Date Type Department Care Team (Late st Contact Info) Description 10/31/2018 Hospital Encounter [facility]iology [facility] [address] [place] [address] Social History Tobacco Use Types Packs/Day Years [...] on file 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 There will be no report generated by a [facility] Radiologist. Narrative [facility] - 01/07/2023 10:15 AM CDT EXAMINATION: Images For Reference Purposes Only us Provider Transcribed Order IMG MAMMO PROCEDURES Final Result [facility] documented in this encounter Visit Diagnoses Not on filedocumented in this encounter Care Teams Sales Planner Relationship Specialty Start Date End Date Joseph Floyd MD [address] [place] [address] PCP - General 06/28/17 Joseph Floyd MD [address] [place] [address] Referring Physician Internal Medicine 07/14/18 documented as of this encounter
--- OUTSIDE RECORDS SUMMARY | 2019-11-12 | XMS_ITS | Encounter Summary ---
Author Organization [facility] Healthcare Address [address] [place] [address] Care Team Providers Care Educational Recruiter Name Role Phone Joseph Floyd MD Primary Care Provider [phone] Joseph Floyd MD Unavailable [phone] Reason for Visit * Diagnostic Imaging (Routine) - Closed Specialty Diagnoses / Procedures Referred By Contac t Referred To Contact Procedures Breast Imaging Screening Outside Reference Transcribed Order, Provider Referral ID Status Reason Start Date Expiration Date Visits Re quested Visits Authorized [id number] Closed 01/07/2023 02/06/2024 1 1 Encounter Details Date Type Department Care Team (Late st Contact Info) Description 11/12/2019 Hospital Encounter [facility]iology [facility] [address] [place] [address] Social History Tobacco Use Types Packs/Day Years [...] on file 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 There will be no report generated by a [facility] Radiologist. Narrative [facility] - 01/07/2023 10:15 AM CDT EXAMINATION: Images For Reference Purposes Only us Provider Transcribed Order IMG MAMMO PROCEDURES Final Result [facility] documented in this encounter Visit Diagnoses Not on filedocumented in this encounter Care Teams Educational Recruiter Relationship Specialty Start Date End Date Joseph Floyd MD [address] [place] [address] PCP - General 06/28/17 Joseph Floyd MD [address] [place] [address] Referring Physician Internal Medicine 07/14/18 documented as of this encounter
[2024-12-30] VITALS (13 sets, daily range): BP systolic 146–176; BP diastolic 81–98; PULSE 74–98; RESP 16–20; TEMP 36.2–36.8; O2SAT 93–99
--- NOTE | ~2024-12-30 | CT_ITS ---
CT HEAD NON-CONTRAST Clinical History: Onset this AM, Anterior headache/ vertigo/ N/ V; worsening Comparison: 05/09/2021 Technique: Unenhanced axial images skull base to vertex Coronal, sagittal reformats CT images acquired with automatic exposure control for dose reduction DLP: 605 mGy-cm Findings: Sulci, ventricles: Unremarkable. No intracerebral hemorrhage. No evidence acute territorial infarct. No mass effect, midline shift. Bony calvarium intact. Visualized paranasal sinuses: Clear. Mastoid air cells: Clear. IMPRESSION: 1. No acute intracranial findings. Reviewed, dictated and finalized at location R.
--- NOTE | 2024-12-30 11:49 | ECG_ITS ---
Test Date: 2024-12-30 12:04:33 Measurements Intervals [place] Rate: 77 P: 67 ID: 173 QRS: 69 QRSD: 92 T: 57 QT: 396 QTc: 450 Interpretive Statements SINUS RHYTHM BASELINE ARTIFACT- I, II, III, AVR, AVL, AVF, V1 NORMAL ECG No previous ECG available for comparison Electronically Signed On 12-30-2024 13:29:38 CDT by Jose Knapp D.O.
--- OUTSIDE RECORDS SUMMARY | 2024-12-30 11:49 | XMS_ITS | Clinical Summary ---
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
--- OUTSIDE RECORDS SUMMARY | 2024-12-30 11:49 | XMS_ITS | Clinical Summary ---
Author Organization [facility] Physician Office Building [address] [place] [address] Care Team Providers Care Voucher Clerk Name Role Phone Joseph Floyd MD Primary Care Provider [phone] Joseph Floyd MD Unavailable [phone] Allergies No known active allergies Medications levothyroxine (SYNTHROID, LEVOTHROID) 50 mcg tablet Take 1 tablet (50 mcg total) by mouth daily 1 06/25/2018 Active losartan (COZAAR) 25 mg tablet Take 1 tablet (25 mg total) by mouth daily 04/14/2021 Active melatonin 5 mg capsule Active multivit,calc,m ins/iron/folic (ONE-A-DAY WOMENS FORMULA ORAL) Active nortriptyline (PAMELOR) 10 mg capsule Take 1 capsule (10 mg total) by mouth nightly 04/14/2021 Active polyethylene glycol (Miralax) 17 gram/dose powder Active rosuvastatin (CRESTOR) 5 mg tablet Take 1 tablet (5 mg total) by mouth daily 05/23/2021 Active busPIRone (BUSPAR) 10 mg tablet 12/25/2022 Active PARoxetine (PAXIL) 20 mg tablet 12/25/[address] (PROTONIX) 40 mg EC tablet Take 1 tablet (40 mg total) by mouth daily Active Active Problems Problem Noted Date Diagnosed Date Age-related osteoporosis wit hout current pathological fracture 08/13/2024 Thyroid nodule 06/30/2017 Cardiovascular symptoms 11/07/2014 Palpitations [...] Talya Hypertension Mother Talya Arthritis Paternal Grandmother Ejancarlos Heart attack Paternal Grandmother Jeancarlos Heart disease [...] on file Legal Sex Female 10:15 AM HOSPICE/HOME 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 Gender Identity Female 05/30/2021 6:49 AM CDT [...] Anes PTL Manju A1 A5 Name Clin 1982 Term F Vag-S pont Living 1986 Term F Vag-S pont Living Last Filed Vital Signs Vital Sign Reading Time Taken Comments Blood Pressure 143/86 03/31/2023 9:44 AM HOSPICE/HOME HEALTH AIDE Pulse - - Temperature - - Respiratory Rate - - Oxygen Saturation - - Inhaled Oxygen Concentration - - Weight 76.7 kg (169 lb) 08/13/2024 8:00 AM CDT Height 164.5 cm (5' 4.75) 08/13/2024 8:00 AM CD T Body Mass Index 28.34 08/13/2024 8:00 AM CDT Plan of Treatment Health Maintenance Due Date Last Done Comments Colon Cancer Screening-Colonoscopy 1960 Depression Screening 1960 Hepatitis C Screening 1960 Hepatitis B Screening 1980 Breast Cancer Screening-Mammogram 01/07/2024 01/06/2023 Regular Well Visit/Exam 18-64 03/31/2024 03/31/2023 Covid-19 Vaccine (3 - season) 2024 06/27/2020, 05/30/2020 Influenza Vaccine (#1) 2024 , 12/01/2022, 11/20/2020, Additional history exists DTaP/Tdap/Td Vaccine (2 - Td or Tdap) 11/20/2030 11/20/2020 Zoster Vaccine Completed 09/27/2019, 10/11/2018 Pneumococcal vaccine <65 Aged Out No longer [...] compared to prior imaging studies performed at [place], [place] on 11/12/2019, 11/25/2020 and 12/18/2021. The [...] compared to prior imaging studies performed at [place], [place] on11/12/2019, 11/25/2020 and 12/18/2021. The breasts [...] Most Recently Relevant to Health Maintenance Insurance [facility] [employer] [facility] H[facility]/PPO Address: [place] [address] [facility]O Address: [place] [address] [facility] HMO/PPO Address: [place] [address] Care Teams Voucher Clerk Relationship Specialty Start Date End Date Joseph Floyd MD [address] [place] [id number] PCP - General 06/28/17 Joseph Floyd MD [address] [place] [address] Referring Physician Internal Medicine 07/14/18
--- OUTSIDE RECORDS SUMMARY | 2024-12-30 11:49 | XMS_ITS | Encounter Summary ---
Author Organization [facility] Medical Group Address [address] [place] [address] Care Team Providers Care Project Manager/Team Coach Name Role Phone Joseph Floyd MD Primary Care Provider [phone] Joseph Floyd MD Unavailable [phone] Encounter Details Date Type Department Care Team (Late st Contact Info) Description 04/06/2011 Orders Only [facility] Information Management [address] [place] [address] Scanning, Provider Social History Tobacco Use Types Packs/Day Years Used Date Smoking Tobacco: Never Assessed Comments Unknown Sex and Gender Information Value Date Recorded Sex Assigned at Not on file 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
--- OUTSIDE RECORDS SUMMARY | 2024-12-30 11:49 | XMS_ITS | Encounter Summary ---
Author Organization [facility] Medical [facility] Address [address] [place] [address] Care Team Providers Care Sewage Plant Supervisor Name Role Phone Joseph Floyd MD Primary Care Provider [phone] Joseph Floyd MD Unavailable [phone] Encounter Details Date Type Department Care Team (Late st Contact Info) Description 03/31/2015 Orders Only [facility] [facility] [place] [address] [place] [address] Scanning, Provider Social History Tobacco Use Types Packs/Day Years Used Date Smoking Tobacco: Never Assessed Comments Unknown Sex and Gender Information Value Date Recorded Sex Assigned at Not on file Legal Sex Female 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
--- OUTSIDE RECORDS SUMMARY | 2024-12-30 11:49 | XMS_ITS | Encounter Summary ---
Author Organization [facility] Address [address] [place] [address] Care Team Providers Care Marine Firefighter Name Role Phone Unavailable Primary Care Provider Unavailabl e Encounter Details Date Type Department Care Team (Late st Contact Info) Description 05/21/2008 Outpatient Historical [facility], [address] Annie Diamond MD [address] [place] [address] Social History Tobacco Use Types Packs/Day Years Used Date Smoking Tobacco: Never Assessed Comments Unknown Sex and Gender Information Value Date Recorded Sex Assigned at Not on file Legal Sex Female 5:42 AM VOICER Gender Identity Not on file Sexual Orientation Not on file documented as of this encounter Plan of Treatment Not on file documented as of this encounter Procedures Procedure Name Priority Date/Time Associated Diagnosis Comments PATHOLOGY Routine 05/21/2008 3:52 PM CDT documented in this encounter Results * PATHOLOGY (05/21/2008 3:52 PM CDT) FINAL REPORT [address] [address] Patient: ROSSY WILLIAMSON : 1960 Procedure Date: 05/21/2008 Accession Date: 05/21/2008 Case No: [id number] Ordering Dr: ANNIE DIAMOND Case types AW, BW, FW, NW and SH are performed by [facility], [place], [place] SURGICAL PATHOLOGY & NON-GYNECOLOGIC CYTOPATHOLOGY REPORT [...] 08:07 am Microscopic: The slides are labeled [id number] and Rossy Williamson. The sections of the [...] developed and its performance characteristic determined by [facility], Department of Laboratory Medicine. It has [...]
--- OUTSIDE RECORDS SUMMARY | 2024-12-30 11:49 | XMS_ITS | Encounter Summary ---
Author Organization [facility] Medical Group Address [address] [place] [address] Care Team Providers Care Hotel Supplies Salesperson Name Role Phone Joseph Floyd MD Primary Care Provider [phone] Joseph Floyd MD Unavailable [phone] Encounter Details Date Type Department Care Team (Late st Contact Info) Description 02/11/2015 Orders Only [facility] [place] Health Information Management [address] [place] [address] Scanning, Provider Social History Tobacco Use Types Packs/Day Years Used Date Smoking Tobacco: Never Assessed Comments Unknown Sex and Gender Information Value Date Recorded Sex Assigned at Not on file Legal Sex Female 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
--- OUTSIDE RECORDS SUMMARY | 2024-12-30 11:49 | XMS_ITS | Patient Health Record ---
Author Organization [facility] Address [address] [facility] [address] [place] [address] Care Team Providers Care External Relations Manager Name Role Phone Mitesh HOWELL, Marek Primary Care Provider Unavail able Reason For Referral No Information Plan Of Treatment No Information Insurance Providers Payer Name Payer Address Payer Phone Subscriber Number Group Number Insured Name Patient Relationship to Insured Coverage Start Date Coverage End Date [facility] [employer] [id number] [address] [address] [place] [phone] [id number] Jayne Williamson Self - patient is the insured
--- OUTSIDE RECORDS SUMMARY | 2024-12-30 11:49 | XMS_ITS | Encounter Summary ---
Author Organization [facility] Medical [facility] Address [address] [place] [address] Care Team Providers Care Paraffin Machine Operator Name Role Phone Joseph Floyd MD Primary Care Provider [phone] Joseph Floyd MD Unavailable [phone] Encounter Details Date Type Department Care Team (Late st Contact Info) Description 03/29/2011 Orders Only [facility] [place] [address] [place] [address] Scanning, Provider Social History Tobacco Use Types Packs/Day Years Used Date Smoking Tobacco: Never Assessed Comments Unknown Sex and Gender Information Value Date Recorded Sex Assigned at Not on file Legal Sex Female 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
--- NOTE | 2024-12-30 11:50 | ED.GENADULT ---
HPI - General Adult General Chief complaint: Dizziness Stated complaint: dizzy Time Seen by Provider: 12/30/24 11:49 History of Present Illness HPI narrative: Jayne is a 64F with a PMH of HLD, HTN, HLD, and a mood disorder that presented to the ED with vertigo and a severe headache. It started yesterday evening with mild vertigo which became way worse through the night and turned to a frontal headache with severe photophobia. The vertigo is constant. No CP, palpitations or dyspnea currently. Related Data Home Medications ?Medication ?Instructions ?Recorded ?Confirmed ?Last Taken ?Type cholecalciferol (vitamin D3) 25 25 mcg PO DAILY 07/16/20 11/03/20 07/20/20 History mcg (1,000 unit) tablet (Vitamin D3) escitalopram oxalate 10 mg tablet 10 mg PO DAILY 07/16/20 11/03/20 07/24/20 History famotidine 20 mg tablet (Pepcid) 20 mg PO DAILY 07/16/20 11/03/20 07/20/20 History ibandronate 150 mg tablet 150 mg PO MONTHLY 07/16/20 11/03/20 06/26/20 History levothyroxine 50 mcg tablet 50 mcg PO DAILY 07/16/20 11/03/20 07/25/20 04:30 History losartan 25 mg tablet 25 mg PO DAILY 07/16/20 11/03/20 07/24/20 History melatonin 3 mg tablet 3 mg PO 07/16/20 11/03/20 07/20/20 History multivitamin 1 tablet PO DAILY 07/16/20 11/03/20 07/20/20 History nortriptyline 10 mg capsule 10 mg PO HS 07/16/20 11/03/20 07/24/20 History polyethylene glycol 3350 17 gram 17 g PO BID 07/16/20 11/03/20 07/24/20 History oral powder packet (Miralax) rosuvastatin 5 mg tablet 5 mg PO 07/16/20 11/03/20 07/24/20 History Allergies Allergy/AdvReac Type Severity Reaction Status Date / Time No Known Allergies Allergy Verified 12/30/24 11:47 Review of Systems Review of Systems: All systems reviewed & are unremarkable except as noted in HPI and below PMFSH Past Medical History Medical History Depression Anxiety Hypertension Hyperlipidemia Osteoporosis Hypothyroidism IBS (irritable bowel syndrome) Wears glasses Claustrophobia Surgical History Surgical History H/O: hysterectomy 1988 Family History Family History Father Hypertension Cerebrovascular accident Family history of type 2 diabetes mellitus Mother Hypertension Family history of type 2 diabetes mellitus Sibling Hypertension Family history of type 2 diabetes mellitus Other Arthritis Family history of malignant neoplasm of breast Heart disease High cholesterol Melanoma Thyroid cancer Social History Social History Alcohol intake: never Substance use: never Substance use type: does not use Living arrangements: with family Occupation/Education: occupation Gender identity (if verbalized by the patient): Female Spiritual care concerns: No Exam Const: General: cooperative, comfortable, no acute distress, well developed, alert, awake and Physically active Orientation/consciousness: oriented to person, oriented to place and oriented to time Other: Mild distress. Lying in bed with her eyes covered. HENMT: Head: normal to inspection, normocephalic and atraumatic Ears: hearing grossly normal bilaterally and external ears normal Face/Nose/Sinus: Normal external nose present Eyes: General: appearance normal, both eyes and all related structures Periorbital: periorbital findings normal Sclera: sclerae normal Pupils: Equal, round and reactive pupils present Neck: Neck: normal visual inspection Chest: Chest palpation & inspection: normal inspection of the chest Resp: Effort & Inspection: normal respiratory effort, able to speak in complete sentences and no respiratory distress Auscultation: clear to auscultation bilaterally Cardio: Jugular venous distension: no JVD Rate: regular rate Rhythm: regular rhythm Skin: General skin exam: normal color and no rashes or lesions noted Neuro: General: oriented to person, oriented to place and oriented to time Cranial nerves: Yes Equal, round and reactive pupils present Other: photophobia was so bad she could not comply with neuro exam. Extrem: General: normal to inspection Course Course Emergency Course: Ordered EKG, CT labs, fluids compazine and benadryl. DDx includes BPPV vs abnormal migraine vs CVA vs bleed vs other. EKG shows NSR with a rate of 77, normal axis, no ST elevation/depression or ectopy CT HEAD NON-CONTRAST Clinical History: Onset this AM, Anterior headache/ vertigo/ N/ V; worsening Comparison: 05/09/2021 Technique: Unenhanced axial images skull base to vertex Coronal, sagittal reformats CT images acquired with automatic exposure control for dose reduction DLP: 605 mGy-cm Findings: Sulci, ventricles: Unremarkable. No intracerebral hemorrhage. No evidence acute territorial infarct. No mass effect, midline shift. Bony calvarium intact. Visualized paranasal sinuses: Clear. Mastoid air cells: Clear. IMPRESSION: 1. No acute intracranial findings. Labs were largely unremarkable. After the meds her headache pain went from a 10-->5 and her vertigo was much improved. Discharged to f/u with PCP and discussed Eliceo maneuver. Vital Signs Vital signs: Vital Signs Temperature 97.2 F L 12/30/24 11:48 Pulse Rate 98 12/30/24 11:48 Respiratory Rate 20 12/30/24 11:48 Blood Pressure 152/98 H 12/30/24 11:48 Pulse Oximetry 99 12/30/24 11:48 Oxygen Delivery Room Air 12/30/24 11:48 Temperature 97.2 F L 12/30/24 11:48 Pulse Rate 98 12/30/24 11:48 Respiratory Rate 20 12/30/24 11:48 Blood Pressure 152/98 H 12/30/24 11:48 Pulse Oximetry 99 12/30/24 11:48 Oxygen Delivery Room Air 12/30/24 11:48 Medical Decision Making Vital Signs Vital Signs: Vital Signs Temperature 97.2 F L 12/30/24 11:48 Pulse Rate 98 12/30/24 11:48 Respiratory Rate 20 12/30/24 11:48 Blood Pressure 152/98 H 12/30/24 11:48 Pulse Oximetry 99 12/30/24 11:48 Oxygen Delivery Room Air 12/30/24 11:48 Temperature 97.2 F L 12/30/24 11:48 Pulse Rate 98 12/30/24 11:48 Respiratory Rate 20 12/30/24 11:48 Blood Pressure 152/98 H 12/30/24 11:48 Pulse Oximetry 99 12/30/24 11:48 Oxygen Delivery Room Air 12/30/24 11:48 Lab Data 12/30/24 11:58 12/30/24 11:58 Labs: Lab Results 12/30/24 Range/Units 11:58 WBC 5.3 (4.8-10.8) K/mm3 RBC 4.32 (4.20-5.40) M/mm3 Hgb 12.8 (12.0-15.0) g/dL Hct 36.9 (35.0-49.0) % MCV 85.4 (78.0-102.0) fL MCH 29.6 (27.0-31.0) pg MCHC 34.7 (32-36) g/dL RDW 11.6 (11.6-14.4) % Plt Count 201 (150-420) K/mm3 MPV 10.3 (9.2-11.8) fl Immature Gran % (Auto) 0.2 H (0.0-0.0) % Neut % (Auto) 59.7 (50.0-70.0) % Lymph % (Auto) 29.5 (18.0-42.0) % [place] % (Auto) 9.1 (2.0-11.0) % Eos % (Auto) 0.9 L (1.0-6.0) % Baso % (Auto) 0.6 (0.0-1.0) % Lymph # (Auto) 1.56 (1.10-4.50) K/mm3 [place] # (Auto) 0.48 (0.10-0.90) K/mm3 Eos # (Auto) 0.05 (0.02-0.50) K/mm3 Baso # (Auto) 0.03 (0.00-0.10) K/mm3 Abs Immat Gran (auto) 0.01 H (0.00-0.00) K/mm3 Absolute Neuts (auto) 3.15 (1.70-7.20) K/mm3 Absolute Nucleated RBC 0.00 (0.00-0.00) K/mm3 Nucleated RBC % 0.0 (0-0.0) % PT 10.5 (9.50-12.1) Seconds INR 0.9 Sodium 135 L (137-145) mmol/L Potassium 4.6 (3.4-5.0) mmol/L Chloride 101 (98-107) mmol/L Carbon Dioxide 27 (22-30) mmol/L Anion Gap 7 (4-12) mmol/L BUN 13 (7-17) mg/dL Creatinine 0.71 (0.7-1.0) mg/dL Estim Creat Clear Calc 73 ml/min Estimated GFR > 60 (59 - ) Glucose 109 (65-110) mg/dL Calculated Osmolality 281 L (285-295) mOsm/kg Calcium 9.7 (8.4-10.2) mg/dL Total Bilirubin 0.8 (0.2-1.3) mg/dL AST 26 (14-36) U/L ALT 23 (6-35) U/L Alkaline Phosphatase 72 (38-126) U/L Troponin I < 0.012 (0.000-0.034) ng/mL Total Protein 7.6 (6.3-8.2) g/dL Albumin 4.5 (3.5-5.1) g/dL Discharge Plan Discharge Clinical Impression: Headache, Vertigo Patient Disposition: Home Condition: Stable Instructions: Benign Paroxysmal Positional Vertigo (ED) Patient Language: Kenyan Prescriptions: New meclizine 25 mg tablet 25 mg PO BID PRN (Reason: dizziness) Qty: 30 0RF No Action oseltamivir [Tamiflu] 75 mg capsule 75 mg PO BID 5 Days Qty: 10 0RF amoxicillin-pot clavulanate 875-125 mg tablet 1 tablet PO BID 10 Days Qty: 20 0RF prednisone 20 mg tablet 40 mg PO DAILY 3 Days Qty: 6 0RF acetaminophen-codeine 120 mg-12 mg /5 mL (5 mL) solution 10 ml PO Q8H PRN (Reason: pain) Qty: 200 0RF multivitamin Tablet 1 tablet PO DAILY polyethylene glycol 3350 [Miralax] 17 gram Powder In Packet 17 g PO BID melatonin 3 mg Tablet 3 mg PO HS famotidine [Pepcid] 20 mg Tablet 20 mg PO DAILY levothyroxine 50 mcg tablet 50 mcg PO DAILY nortriptyline 10 mg capsule 10 mg PO HS losartan 25 mg tablet 25 mg PO DAILY escitalopram oxalate 10 mg tablet 10 mg PO DAILY rosuvastatin 5 mg tablet 5 mg PO HS ibandronate 150 mg tablet 150 mg PO MONTHLY Patient Comments: PT TAKES ON THE OF THE MONTH cholecalciferol (vitamin D3) [Vitamin D3] 25 mcg (1,000 unit) Tablet 25 mcg PO DAILY hydrocodone-acetaminophen 5-325 mg tablet 1 tablet PO Q8H PRN (Reason: PAIN) Qty: 30 0RF Follow-up/Referrals: Joseph Floyd MD [Primary Care Provider, Internal Medicine]
[2024-12-30 12:05] LABS: Hematocrit 36.9 % (35.0-49.0); Hemoglobin 12.8 g/dL (12.0-15.0); Immature Granulocyte Percent A 0.2 % (0.0-0.0); Lymphocytes Absolute Auto 1.56 K/mm3 (1.10-4.50); Mean Corpuscular HGB Conc 34.7 g/dL (32-36); Mean Corpuscular Hemoglobin 29.6 pg (27.0-31.0); Mean Corpuscular Volume 85.4 fL (78.0-102.0); Nucleated Red Blood Cells Absolute Auto 0.00 K/mm3 (0.00-0.00); Nucleated Red Blood Cells Perc 0.0 % (0-0.0); Platelet Count Result 201 K/mm3 (150-420); Red Blood Count 4.32 M/mm3 (4.20-5.40); White Blood Count 5.3 K/mm3 (4.8-10.8)
[2024-12-30] MEDS: SODIUM CHLORIDE 0.9% IV 1,000 ML 999 ML IV CONT (12:07)
[2024-12-30] MEDS: PROCHLORPERAZINE EDISYLATE 10 MG/2 ML VIAL IV PUSH (12:08)
[2024-12-30 12:16] LABS: INR 0.9; Prothrombin Time 10.5 Seconds (9.50-12.1)
[2024-12-30 12:17] LABS: Alanine Aminotransferase 23 U/L (6-35); Albumin Level 4.5 g/dL (3.5-5.1); Alkaline Phosphatase 72 U/L (38-126); Anion Gap 7 mmol/L (4-12); Aspartate Amino Transferase 26 U/L (14-36); Bilirubin,Total 0.8 mg/dL (0.2-1.3); Blood Urea Nitrogen 13 mg/dL (7-17); Calcium 9.7 mg/dL (8.4-10.2); Carbon Dioxide 27 mmol/L (22-30); Chloride 101 mmol/L (98-107); Estimated CRCL calculation 73 ml/min; Estimated Glomerular Filt Rate > 60; Glucose 109 mg/dL (65-110); Osmolality Calculated 281 mOsm/kg (285-295); Potassium 4.6 mmol/L (3.4-5.0); Sodium 135 mmol/L (137-145); Total Protein 7.6 g/dL (6.3-8.2)
[2024-12-30 12:29] LABS: Troponin I < 0.012 ng/mL (0.000-0.034)
== END 2024-12-30 13:15 | disposition home or self-care (01) ==
PROVIDERS: Emergency Provider Family Medicine; PCP Internal Medicine
DX: R51.9 Headache, unspecified (principal); R42 Dizziness and giddiness; I10 Essential (primary) hypertension; E03.9 Hypothyroidism, unspecified
CPT/HCPCS: 36415; 70450; 80053; 84484; 85025; 85610; 93005; 96361; 96374; 96375; 99284; J0780; J1200; J7030

== ENCOUNTER 2025-01-26 09:29 | Outpatient (CLI) | payer OTHER, SELFPAY ==
--- OUTSIDE RECORDS SUMMARY | 2018-10-30 23:00 | XMS_ITS | Encounter Summary ---
Author Organization [facility] Healthcare Address [address] [place] [address] Care Team Providers Care Licensed Veterinary Technician Name Role Phone Joseph Floyd MD Primary Care Provider [phone] Joseph Floyd MD Unavailable [phone] Reason for Visit * Diagnostic Imaging (Routine) - Closed Specialty Diagnoses / Procedures Referred By Contac kameron Referred To Contact Diagnoses Screening mammogram, encounter for Procedures Breast Imaging Screening Outside Reference Transcribed Order, Provider Referral ID Status Reason Start Date Expiration Date Visits Re quested Visits Authorized [id number] Closed 01/07/2023 02/06/2024 1 1 Encounter Details Date Type Department Care Team (Late st Contact Info) Description 10/31/2018 Hospital Encounter [facility] [address] [place] [address] Social History Tobacco Use Types Packs/Day Years Used Date Smoking Tobacco: Never Smokeless Tobacco: Never Alcohol Use Standard Drinks/Week Comments Not Currently 0 (1 standard drink = 0.6 oz pur e alcohol) AUDIT-C Answer Date Recorded Frequency of Alcohol Consumption Never 07/17/2018 Average Number of Drinks Not on file 019 Frequency of Binge Drinking Not on file 08/2018 Comments No Sex and Gender Information Value Date Recorded Sex Assigned at Not on file 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 Gender Identity Female 05/30/2021 6:49 AM CDT Sexual Orientation Not on file 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 t on file documented as of this encounter Functional Status documented as of this encounter Plan of Treatment Not on file documented as of this encounter Procedures Procedure Name Priority Date/Time Associated Diagnosis Comments BREAST IMAGING MG SCREENING OUTSIDE REFERENCE Schedule Routine, Read Routine (OP Routine) 10/31/2018 12:00 AM CDT Screening mammogram, encounter for documented in this encounter Results * Breast Imaging Screening Outside Reference (10/31/2018 12:00 AM CDT) Impressions [facility] - 01/07/2023 10:15 AM CDT These images are for Reference purposes only and have not been reviewed by [facility] Radiology. There will be no report generated by a [facility] Radiologist. Narrative [facility] - 01/07/2023 10:15 AM CDT EXAMINATION: Images For Reference Purposes Only us Provider Transcribed Order IMG MAMMO PROCEDURES Final Result [facility] documented in this encounter Visit Diagnoses Not on filedocumented in this encounter Care Teams Licensed Veterinary Technician Relationship Specialty Start Date End Date Joseph Floyd MD [address] [place] [address] PCP - General 06/28/17 Joseph Floyd MD [address] [place] [address] Referring Physician Internal Medicine 07/14/18 documented as of this encounter
--- OUTSIDE RECORDS SUMMARY | 2019-11-11 23:00 | XMS_ITS | Encounter Summary ---
Author Organization [facility] Healthcare Address [address] [place] [address] Care Team Providers Care Balloon Tester Name Role Phone Joseph Floyd MD Primary Care Provider [phone] Joseph Floyd MD Unavailable [phone] Reason for Visit * Diagnostic Imaging (Routine) - Closed Specialty Diagnoses / Procedures Referred By Contac t Referred To Contact Procedures Breast Imaging Screening Outside Reference Transcribed Order, Provider Referral ID Status Reason Start Date Expiration Date Visits Re quested Visits Authorized [id number] Closed 01/07/2023 02/06/2024 1 1 Encounter Details Date Type Department Care Team (Late st Contact Info) Description 11/12/2019 Hospital Encounter [facility] Radiology [facility] [address] [place] [address] Social History Tobacco Use Types Packs/Day Years [...] on file 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 Radiology. There will be no report generated by a [facility] Radiologist. Narrative [facility] - 01/07/2023 10:15 AM CDT EXAMINATION: Images For Reference Purposes Only us Provider Transcribed Order IMG MAMMO PROCEDURES Final Result [facility] documented in this encounter Visit Diagnoses Not on filedocumented in this encounter Care Teams Balloon Tester Relationship Specialty Start Date End Date Joseph Floyd MD [address] [place] [address] PCP - General 06/28/17 Joseph Floyd MD [address] [place] [address] Referring Physician Internal Medicine 07/14/18 documented as of this encounter
--- OUTSIDE RECORDS SUMMARY | 2025-01-26 09:34 | XMS_ITS | Encounter Summary ---
Author Organization [facility] Address [address] [place] [address] Care Team Providers Care Bow Making Machine Operator Name Role Phone Unavailable Primary Care Provider Unavailabl e Encounter Details Date Type Department Care Team (Late st Contact Info) Description 05/21/2008 Outpatient Historical [facility], [address] Annie Diamond MD [address] 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 Gender Identity Not on file Sexual Orientation Not on file documented as of this encounter Plan of Treatment Not on file documented as of this encounter Procedures Procedure Name Priority Date/Time Associated Diagnosis Comments PATHOLOGY Routine 05/21/2008 3:52 PM CDT documented in this encounter Results * PATHOLOGY (05/21/2008 3:52 PM CDT) FINAL REPORT [address] [address] Patient: ROSSY WILLIAMSON : 1960 Procedure Date: 05/21/2008 Accession Date: 05/21/2008 Case No: [id number] Ordering Dr: ANNIE DIAMOND Case types AW, BW, FW, NW and SH are performed by [facility], [place], [place] SURGICAL PATHOLOGY & NON-GYNECOLOGIC CYTOPATHOLOGY REPORT [...] 08:07 am Microscopic: The slides are labeled [id number] and Rossy Williamson. The sections of the [...] developed and its performance characteristic determined by [facility], Department of Laboratory Medicine. It has not [...]
--- OUTSIDE RECORDS SUMMARY | 2025-01-26 09:34 | XMS_ITS | Encounter Summary ---
Author Organization [facility] Address [address] [facility] [address] [place] [address] Care Team Providers Care Perfume Compounder Name Role Phone Joseph Floyd MD Primary Care Provider [phone] Joseph Floyd MD Unavailable [phone] Encounter Details Date Type Department Care Team (Late st Contact Info) Description 02/11/2015 Orders Only [facility] [place] [facility] Information Management [address] [place] [address] Scanning, Provider Social History Tobacco Use Types Packs/Day Years Used Date Smoking Tobacco: Never Assessed Comments Unknown Sex and Gender Information Value Date Recorded Sex Assigned at Not on file Legal Sex Female 10:15 AM DIRECTOR MBA Gender Identity Female 05/30/2021 6:49 AM CDT [...] on filedocumented in this encounter Care Teams Perfume Compounder Relationship Specialty Start Date End Date Joseph Floyd MD [address] [place] [address] PCP - General 06/28/17 Joseph Floyd MD [address] [place] [address] Referring Physician Internal Medicine 07/14/18 documented as of this encounter
--- OUTSIDE RECORDS SUMMARY | 2025-01-26 09:34 | XMS_ITS | Encounter Summary ---
Author Organization [facility] Address [address] [place] [address] Care Team Providers Care School Lunch Monitor Name Role Phone Joseph Floyd MD Primary Care Provider [phone] Joseph Floyd MD Unavailable [phone] Encounter Details Date Type Department Care Team (Late st Contact Info) Description 03/31/2015 [place] Only [facility] [place] [address] [place] [address] Scanning, Provider Social History Tobacco Use Types Packs/Day Years Used Date Smoking Tobacco: Never Assessed Comments Unknown Sex and Gender Information Value Date Recorded Sex Assigned at Not on file Legal Sex Female 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
--- OUTSIDE RECORDS SUMMARY | 2025-01-26 09:35 | XMS_ITS | Encounter Summary ---
Author Organization [facility] Address [address] [facility] [address] [place] [address] Care Team Providers Care Sap Payroll Consultant Name Role Phone Joseph Floyd MD Primary Care Provider [phone] Joseph Floyd MD Unavailable [phone] Encounter Details Date Type Department Care Team (Late st Contact Info) Description 03/29/2011 [place] [facility] [place] [address] [place] [address] Scanning, Provider Social History Tobacco Use Types Packs/Day Years Used Date Smoking Tobacco: Never Assessed Comments Unknown Sex and Gender Information Value Date Recorded Sex Assigned at Not on file 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
--- OUTSIDE RECORDS SUMMARY | 2025-01-26 09:35 | XMS_ITS | Encounter Summary ---
Author Organization [facility] Address [address] [place] [address] Care Team Providers Care Military Pay Clerk Name Role Phone Joseph Floyd MD Primary Care Provider [phone] Joseph Floyd MD Unavailable [phone] Encounter Details Date Type Department Care Team (Late st Contact Info) Description 04/06/2011 Orders Only [facility] [place] Health Information Management [address] [place] [address] Scanning, Provider Social History Tobacco Use Types Packs/Day Years Used Date Smoking Tobacco: Never Assessed Comments Unknown Sex and Gender Information Value Date Recorded Sex Assigned at Not on file 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
--- OUTSIDE RECORDS SUMMARY | 2025-01-26 09:36 | XMS_ITS | Patient Health Record ---
Author Organization [employer] Address [address] [place] [facility]. [address] [place] [id number] Care Team Providers Care Supervisor Telephone Information Name Role Phone Mitesh HOWELL, Marek Primary Care Provider Unavail able Reason For Referral No Information Plan Of Treatment No Information Insurance Providers Payer Name Payer Address Payer Phone Subscriber Number Group Number Insured Name Patient Relationship to Insured Coverage Start Date Coverage End Date [facility] [employer] E2 [address] [address] [place] [address] [phone] [id number] Jayne Williamson Self - patient is the insured
--- OUTSIDE RECORDS SUMMARY | 2025-01-26 09:37 | XMS_ITS | Clinical Summary ---
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 The [...] compared to prior imaging studies performed at [place] on11/12/2019, 11/25/2020 and 12/18/2021. The breasts [...] Most Recently Relevant to Health Maintenance Insurance [facility] [employer] PL[employer] [facility] PL[employer] Care Teams Yeast Pumper Relationship Specialty Start Date End Date Joseph Floyd MD [address] [place] [id number] PCP - General 06/28/17 Joseph Floyd MD [address] [place] [id number] Referring Physician Internal Medicine 07/14/18
[2025-01-26 09:46] LABS: Hematocrit 40.0 % (35.0-49.0); Hemoglobin 13.3 g/dL (12.0-15.0); Mean Corpuscular HGB Conc 33.3 g/dL (32-36); Mean Corpuscular Hemoglobin 29.5 pg (27.0-31.0); Mean Corpuscular Volume 88.7 fL (78.0-102.0); Platelet Count Result 213 K/mm3 (150-420); Red Blood Count 4.51 M/mm3 (4.20-5.40); White Blood Count 5.0 K/mm3 (4.8-10.8)
[2025-01-26 11:00] LABS: Alanine Aminotransferase 29 U/L (6-35); Albumin Level 4.4 g/dL (3.5-5.1); Alkaline Phosphatase 78 U/L (38-126); Anion Gap 7 mmol/L (4-12); Aspartate Amino Transferase 30 U/L (14-36); Blood Urea Nitrogen 13 mg/dL (7-17); Calcium 9.7 mg/dL (8.4-10.2); Carbon Dioxide 31 mmol/L (22-30); Chloride 105 mmol/L (98-107); Cholesterol 209 mg/dL (0-200); Creatine Kinase 24 U/L (30-135); Estimated Glomerular Filt Rate > 60; Glucose 98 mg/dL (65-110); HDL Direct 63 mg/dL; Osmolality Calculated 296 mOsm/kg (285-295); Potassium 4.5 mmol/L (3.4-5.0); Sodium 143 mmol/L (137-145); Total Protein 6.8 g/dL (6.3-8.2); Triglycerides 162 mg/dL (<150)
[2025-01-26 11:17] LABS: Free T3 3.50 pg/mL (2.18-3.98); Free T4 Free Thyroxine 1.09 ng/dL (0.78-2.19)
[2025-01-26 11:30] LABS: Thyroid Stimulating Hormone 2.440 uIU/mL (0.465-4.680)
[2025-01-26 11:38] LABS: Add Urine Microscopic? NO; Appearance Urine Clear (Clear); Glucose Urine UA Negative (Negative); Leukocyte Esterase Ur Negative (Negative); Nitrate Urine Negative (Negative); Specific Grav Ur 1.010 (1.010-1.020)
[2025-01-29 16:16] LABS: Bilirubin,Total 0.6 mg/dL (0.2-1.3)
== END 2025-01-26 09:30 | disposition home or self-care (01) ==
LOC: CHSLAB 09:31
PROVIDERS: PCP Internal Medicine; Visit Provider Internal Medicine
DX: E78.00 Pure hypercholesterolemia, unspecified (principal); E03.9 Hypothyroidism, unspecified; I10 Essential (primary) hypertension; M81.0 Age-related osteoporosis without current pathological fracture; R73.01 Impaired fasting glucose; E04.2 Nontoxic multinodular goiter
CPT/HCPCS: 36415; 80053; 80061; 81003; 82306; 82550; 84439; 84443; 84481; 85027